=== PATIENT | female | born 1945 | race Caucasian/White ===

== ENCOUNTER 2020-07-01 09:42 | Observation (INO) | payer MEDICARE, OTHER ==
[2020-07-01 10:19] LABS: Absolute Neutrophil Ct (ANC) 15.56 (1.4-6.9); BASOPHIL % 0.3 % (0.0-0.4); Basophil (Absolute #) 0.05 (0-0.4); Eosinophil % 0.6 % (0.00-5.0); Eosinophil (Absolute #) 0.11 (0-0.5); Hematocrit 41.6 % (35-47); Hemoglobin 13.7 gm/dl (12.0-16.0); Lymphocyte (Absolute #) 1.54 (1.0-4.6); Lymphocytes % 8.3 % (24.0-44.0); Mean Cell Volume 101.5 fl (78-100); Mean Corpuscular Hemoglobin 33.4 pg (26-32); Mean Corpuscular Hgb Concent. 32.9 g/dl (32-36); Mean Platelet Volume 11.3 fl (7.5-11.0); Monocyte (Absolute #) 1.33 (0.0-1.3); Monocytes % 7.2 % (0.0-12.0); Neutrophil % 83.6 % (36.0-66.0); Platelet Count 205 K/mm3 (150-450); Red Cell Distribution Width 13.4 % (11.5-14.0); White Blood Count 18.6 K/mm3 (4.0-10.5)
[2020-07-01 10:25] LABS: INR 1.43 (0.8-3.0); PROTIME 16.2 SECONDS (9.95-12.35)
[2020-07-01 10:28] LABS: PTT 30.5 SECONDS (25.3-37.0)
[2020-07-01 10:30] LABS: ALBUMIN 4.7 g/dL (3.5-5.0); ALKALINE PHOSPHATASE 129 U/L (38-126); BLOOD UREA NITROGEN 17 mg/dL (7-17); CHLORIDE 105 mmol/L (98-107); Calcium 9.4 mg/dL (8.4-10.2); Carbon Dioxide 23 mmol/L (22-30); EST GLOMERULAR FILTRATION RATE > 60.0 ML/MIN; Glucose 144 mg/dL (74-106); Potassium 3.7 mmol/L (3.5-5.1); SGOT/AST 29 U/L (14-36); SGPT/ALT 26 U/L (0-35); SODIUM 137 mmol/L (137-145); Total Protein 8.2 g/dL (6.3-8.2)
--- NOTE | 2020-07-01 10:34 | ERPHSYRPT ---
- History of Present Illness Time Seen by Provider: 07/01/20 10:04 Source: patient Patient Subjective Stated Complaint: pt here for sorethroat, sob,cough, weakness ,nauseafor 2 days now. no fever Triage Nursing Assessment: pt arrived per wc, resp easy, skin w/d/p. danie in place, abd soft, no edema noted Physician History: 75 yo wf w dyspnea/St x 6hrs. Pt denies cough/CP/V/D/melena/hematochezia/fever/dysuria/hematuria. She has had mild nausea. Timing/Duration: other (6hr) Activities at Onset: sleep Severity of Dyspnea-Max: mild Severity of Dyspnea-Current: mild Possible Cause: no prior episodes Modifying Factors: Improves With: activity Associated Symptoms: No anxiety, No cough, No chest pain/discomfort, No edema, No fever, No insomnia, No loss of appetite, No lightheadedness, No wheezing, No weakness, No ankle swelling, No chills, No hemoptysis, No calf pain, No dizziness, No heaviness, No heart racing, No lightheadedness, No leg swelling, No muscle spasms feet, No muscle spasms hands, No painful breathing, No productive cough, No sweating, No tightness, No tingling face, No tingling hands Allergies/Adverse Reactions: No Known Drug Allergies Allergy (Unverified 07/01/20 15:01) Home Medications: Apixaban [Eliquis] 5 mg PO BID 07/01/20 [History] Aspirin 81 mg PO DAILY 07/01/20 [History] Brimonidine/Dorzolamide/Pf [Brimonidine 0.15%-Dorzolam 2%] 2 drops DAILY 07/01/20 [History] Calcium Carbonate [Calcium] 500 mg PO DAILY 07/01/20 [History] Diltiazem HCl [Diltiazem 24Hr ER] 360 mg PO HS 07/01/20 [History] Docusate Sodium [Colace] 100 mg PO DAILY 07/01/20 [History] Dorzolamide HCl/Pf [Dorzolamide 2% Eye Drop] 1 drop OP TID 07/01/20 [History] Latanoprost 2 drops OP HS 07/01/20 [History] Metoprolol Succinate 25 mg Xl* [Toprol-Xl 25MG Tablets] 25 mg PO HS 07/01/20 [History] Multivitamin [Multiple Vitamins] 1 each PO DAILY 07/01/20 [History] Tramadol HCl 50 mg [Ultram 50 mg] 50 mg PO TID 07/01/20 [History] Hx Tetanus, Diphtheria Vaccination/Date Given: No Hx Influenza Vaccination/Date Given: No Hx Pneumococcal Vaccination/Date Given: Yes Immunizations Up to Date: No Travel Risk - International Travel Have you traveled outside of the country in past 3 weeks: No - Coronavirus Screening Are you exhibiting any of the following symptoms?: Yes Symptoms: Cough: New Onset, Shortness of Breath, Vomiting/Diarrhea, Headaches/Body Aches/Fatigue - Review of Systems Constitutional: No Symptoms Eyes: No Symptoms Ears, Nose, & Throat: Throat Pain Respiratory: No Symptoms, Dyspnea Cardiac: No Symptoms Abdominal/Gastrointestinal: No Symptoms Genitourinary Symptoms: No Symptoms Musculoskeletal: No Symptoms Skin: No Symptoms Neurological: No Symptoms Psychological: No Symptoms Endocrine: No Symptoms Hematologic/Lymphatic: No Symptoms Immunological/Allergic: No Symptoms - Past Medical History Pertinent Past Medical History: Yes Cardiac History: Arrhythmia - Past Surgical History Past Surgical History: No - Social History Smoking Status: Former smoker Exposure to second hand smoke: No Drug Use: none Patient Lives Alone: No Significant Family History: no pertinent family hx - Female History Hx Last Menstrual Period: post - Nursing Vital Signs Nursing Vital Signs: Initial Vital Signs Respiratory Rate 22 07/01/20 10:04 O2 Sat by Pulse Oximetry 97 07/01/20 10:04 Pain Scale Pain Intensity 0 - Physical Exam General Appearance: no apparent distress Eye Exam: PERRL/EOMI, eyes nml inspection, scleral icterus Ears, Nose, Throat Exam: hearing grossly normal, pharyngeal erythema Neck Exam: normal inspection, non-tender, supple, full range of motion, No Brudzinski, No Kernig's, No meningismus, No carotid bruit, No JVD Respiratory Exam: normal breath sounds Cardiovascular/Chest Exam: irregular (IR-IR) Abdominal/Gastrointestinal Exam: soft, normal bowel sounds, No tenderness Extremity Exam: non-tender, normal range of motion, normal capillary refill Peripheral Pulses Exam: carotid (R): 2+, carotid (L): 2+ Neurologic Exam: alert, oriented x 3, cooperative, telephone triage nurse II-XII nml as tested, normal mood/affect, sensation nml, No motor deficits, No sensory deficit Skin Exam: normal color, warm, dry Lymphatic Exam: No adenopathy SpO2 Interpretation: normal O2 Delivery: Room Air - Course Nursing assessment & vital signs reviewed: Yes EKG Interpreted by Me: RATE (Afib/Poor R wave progression/Non-specific T wave abnormality/prolonged QTc) - Radiology Exams Chest X-ray Interpretation: Discussed w/ radiologist (Nothing acute) Ordered Tests: Active Orders 24 hr Category Date Time Status EKG-ER Only STAT Care 07/01/20 10:04 Completed Heart-Healthy Diet Diet 07/01/20 Dinner Active CHEST 1 VIEW (PORTABLE) Stat Exams 07/01/20 10:05 Completed CHEST WITHOUT CONTRAST [CT] Stat Exams 07/01/20 11:30 Completed BLOOD CULTURE Stat Lab 07/01/20 10:05 Received CBC W DIFF AM.LAB Lab 07/02/20 04:00 Ordered CBC W DIFF Stat Lab 07/01/20 10:10 Completed CMP AM.LAB Lab 07/02/20 04:00 Ordered CMP Stat Lab 07/01/20 10:10 Completed Lactic Acid Stat Lab 07/01/20 10:25 Completed PROTIME WITH INR Stat Lab 07/01/20 10:10 Completed PTT Stat Lab 07/01/20 10:10 Completed TROPONIN Q3H Lab 07/01/20 10:10 Completed TROPONIN Q3H Lab 07/01/20 13:25 Completed TROPONIN Q3H Lab 07/01/20 16:42 Completed UA W/RFX UR CULTURE Stat Lab 07/01/20 11:38 Completed Transfer Order Routine Transfer 07/01/20 Completed Medication Summary Generic Name Dose Route Start Last Admin Trade Name Freq PRN Reason Stop Dose Admin Acetaminophen 650 mg 07/01/20 16:30 07/01/20 17:15 Tylenol 325 Mg PO 07/31/20 16:29 650 mg Q4H PRN PRN Administration PAIN AND/OR FEVER Apixaban 5 mg 07/01/20 22:00 07/01/20 22:46 Eliquis 2.5 Mg Tablet PO 07/31/20 21:59 5 mg BID LEILA Administration Aspirin 81 mg 07/02/20 10:00 Ecotrin 81 Mg PO 08/01/20 09:59 DAILY LEILA Calcium Carbonate 1 tab 07/02/20 10:00 Calcium 500mg W/Vit D Tablet PO 08/01/20 09:59 DAILY LEILA Diltiazem HCl 360 mg 07/01/20 22:00 07/01/20 22:45 Cardizem Cd 180 Mg PO 07/31/20 21:59 360 mg HS LEILA Administration Docusate Sodium 100 mg 07/02/20 10:00 Colace 100 Mg PO 08/01/20 09:59 DAILY LEILA Sodium Chloride 1,000 mls @ 80 mls/hr 07/01/20 14:00 07/01/20 15:51 Sodium Chloride 0.9% 1000 Ml IV 07/31/20 13:59 80 mls/hr .[id number] LEILA Administration Azithromycin 500 mg in 250 mls @ 250 mls/hr 07/01/20 15:00 07/01/20 15:52 Zithromax 500 Mg/ 250 Ml Nacl Premix IV 07/31/20 14:59 250 mls/hr Q24H10 LEILA Administration Ceftriaxone Sodium/Dextrose 1 g in 50 mls @ 100 mls/hr 07/02/20 10:00 Rocephin 1 Gm-D5w 50 Ml Bag IV 08/01/20 09:59 Q24H10 LEILA Metoprolol Succinate 25 mg 07/01/20 22:00 07/01/20 22:46 Toprol-Xl 25mg Tablets PO 07/31/20 21:59 25 mg HS LEILA Administration Miscellaneous Information 1 each 07/01/20 17:00 Medication Intervention 07/31/20 16:59 .RN TO CHECK ON LEILA Multivitamins Therapeutic 1 tab 07/02/20 10:00 Theragran Multivitamin PO 08/01/20 09:59 DAILY LEILA Ondansetron HCl 4 mg 07/01/20 13:59 07/01/20 15:52 Zofran 4 Mg/2 Ml Vial IV 07/31/20 13:58 4 mg Q6H PRN PRN Administration NAUSEA/VOMITING Pantoprazole Sodium 40 mg 07/01/20 15:00 07/01/20 15:52 Protonix 40 Mg Iv IV 07/31/20 14:59 40 mg Q24H10 LEILA Administration Phenol 1 ml 07/01/20 16:29 07/01/20 16:38 Chloraseptic [place] 180 Ml PO 07/31/20 16:28 1 ml Q2HPRN PRN Administration SORE THROAT Tramadol HCl 50 mg 07/01/20 22:00 07/01/20 22:45 Ultram 50 Mg PO 07/31/20 21:59 50 mg TID LEILA Administration Discontinued Medications Generic Name Dose Route Start Last Admin Trade Name Freq PRN Reason Stop Dose Admin Ceftriaxone Sodium/Dextrose 1 g in 50 mls @ 100 mls/hr 07/01/20 13:56 07/01/20 14:03 Rocephin 1 Gm-D5w 50 Ml Bag IV 07/01/20 14:25 200 ml/hr STAT STA 200 mls/hr Administration Ceftriaxone Sodium/Dextrose Confirm 07/01/20 14:02 Rocephin 1 Gm-D5w 50 Ml Bag Administered 07/01/20 14:03 Dose 1 g in 50 mls @ ud IV .STK-MED ONE Latanoprost ml 07/01/20 22:00 Xalatan OP 07/31/20 21:59 HS LEILA Lidocaine HCl 20 ml 07/01/20 12:56 07/01/20 13:27 Xylocaine Viscous 2% 20 Ml Cup PO 07/01/20 12:57 20 ml STAT ONE Administration Lidocaine HCl Confirm 07/01/20 13:23 Xylocaine Hcl Viscous * Administered 07/01/20 13:24 Dose 20 ml .ROUTE .STVoddler-MED ONE Lab/Rad Data: Laboratory Result Diagrams 07/01/20 10:10 07/01/20 10:10 Laboratory Results 07/01/20 07/01/20 07/01/20 Range/Units 13:25 11:38 10:49 WBC (4.0-10.5) K/mm3 RBC (4.1-5.4) M/mm3 Hgb (12.0-16.0) gm/dl Hct (35-47) % MCV (78-100) fl MCH (26-32) pg MCHC (32-36) g/dl RDW (11.5-14.0) % Plt Count (150-450) K/mm3 MPV (7.5-11.0) fl Gran % (36.0-66.0) % Eos # (Auto) (0-0.5) Absolute Lymphs (auto) (1.0-4.6) Absolute Monos (auto) (0.0-1.3) Lymphocytes % (24.0-44.0) % Monocytes % (0.0-12.0) % Eosinophils % (0.00-5.0) % Basophils % (0.0-0.4) % Absolute Granulocytes (1.4-6.9) Basophils # (0-0.4) PT (9.95-12.35) SECONDS INR (0.8-3.0) APTT (25.3-37.0) SECONDS Sodium (137-145) mmol/L Potassium (3.5-5.1) mmol/L Chloride (98-107) mmol/L Carbon Dioxide (22-30) mmol/L Anion Gap (5-15) MEQ/L BUN (7-17) mg/dL Creatinine (0.52-1.04) mg/dL Estimated GFR ML/MIN Glucose (74-106) mg/dL Lactic Acid (0.4-2.0) Calcium (8.4-10.2) mg/dL Total Bilirubin (0.2-1.3) mg/dL AST (14-36) U/L ALT (0-35) U/L Alkaline Phosphatase (38-126) U/L Troponin I < 0.012 (0.000-0.034) ng/mL Serum Total Protein (6.3-8.2) g/dL Albumin (3.5-5.0) g/dL Urine Color STRAW (YELLOW) Urine Appearance CLEAR (CLEAR) Urine pH 7.0 (5-6) Ur Specific [place] 1.006 (1.005-1.025) Urine Protein NEGATIVE (Negative) Urine Ketones NEGATIVE (NEGATIVE) Urine Blood NEGATIVE (0-5) Bk/ul Urine Nitrite NEGATIVE (NEGATIVE) Urine Bilirubin NEGATIVE (NEGATIVE) Urine Urobilinogen NEGATIVE (0-1) mg/dL Ur Leukocyte Esterase NEGATIVE (NEGATIVE) Urine WBC (Auto) NONE (0-5) /HPF Urine RBC (Auto) 0-2 (0-2) /HPF U Epithel Cells (Auto) NONE (FEW) /HPF Urine Bacteria (Auto) NONE (NEGATIVE) /HPF Urine Mucus (Auto) SLIGHT (NEGATIVE) /HPF Urine Culture Reflexed NO (NO) Urine Glucose NEGATIVE (NEGATIVE) mg/dL SARS-CoV-2 (PCR) NEGATIVE (NEGATIVE) Group A Strep Antibody (NEGATIVE) 07/01/20 07/01/20 07/01/20 Range/Units 10:49 10:25 10:10 WBC (4.0-10.5) K/mm3 RBC (4.1-5.4) M/mm3 Hgb (12.0-16.0) gm/dl Hct (35-47) % MCV (78-100) fl MCH (26-32) pg MCHC (32-36) g/dl RDW (11.5-14.0) % Plt Count (150-450) K/mm3 MPV (7.5-11.0) fl Gran % (36.0-66.0) % Eos # (Auto) (0-0.5) Absolute Lymphs (auto) (1.0-4.6) Absolute Monos (auto) (0.0-1.3) Lymphocytes % (24.0-44.0) % Monocytes % (0.0-12.0) % Eosinophils % (0.00-5.0) % Basophils % (0.0-0.4) % Absolute Granulocytes (1.4-6.9) Basophils # (0-0.4) PT (9.95-12.35) SECONDS INR (0.8-3.0) APTT (25.3-37.0) SECONDS Sodium (137-145) mmol/L Potassium (3.5-5.1) mmol/L Chloride (98-107) mmol/L Carbon Dioxide (22-30) mmol/L Anion Gap (5-15) MEQ/L BUN (7-17) mg/dL Creatinine (0.52-1.04) mg/dL Estimated GFR ML/MIN Glucose (74-106) mg/dL Lactic Acid 1.8 (0.4-2.0) Calcium (8.4-10.2) mg/dL Total Bilirubin (0.2-1.3) mg/dL AST (14-36) U/L ALT (0-35) U/L Alkaline Phosphatase (38-126) U/L Troponin I < 0.012 (0.000-0.034) ng/mL Serum Total Protein (6.3-8.2) g/dL Albumin (3.5-5.0) g/dL Urine Color (YELLOW) Urine Appearance (CLEAR) Urine pH (5-6) Ur Specific [place] (1.005-1.025) Urine Protein (Negative) Urine Ketones (NEGATIVE) Urine Blood (0-5) Bk/ul Urine Nitrite (NEGATIVE) Urine Bilirubin (NEGATIVE) Urine Urobilinogen (0-1) mg/dL Ur Leukocyte Esterase (NEGATIVE) Urine WBC (Auto) (0-5) /HPF Urine RBC (Auto) (0-2) /HPF U Epithel Cells (Auto) (FEW) /HPF Urine Bacteria (Auto) (NEGATIVE) /HPF Urine Mucus (Auto) (NEGATIVE) /HPF Urine Culture Reflexed (NO) Urine Glucose (NEGATIVE) mg/dL SARS-CoV-2 (PCR) (NEGATIVE) Group A Strep Antibody NOT DETECTED (NEGATIVE) 07/01/20 07/01/20 07/01/20 Range/Units 10:10 10:10 10:10 WBC 18.6 H (4.0-10.5) K/mm3 RBC 4.10 (4.1-5.4) M/mm3 Hgb 13.7 (12.0-16.0) gm/dl Hct 41.6 (35-47) % MCV 101.5 H (78-100) fl MCH 33.4 H (26-32) pg MCHC 32.9 (32-36) g/dl RDW 13.4 (11.5-14.0) % Plt Count 205 (150-450) K/mm3 MPV 11.3 H (7.5-11.0) fl Gran % 83.6 H (36.0-66.0) % Eos # (Auto) 0.11 (0-0.5) Absolute Lymphs (auto) 1.54 (1.0-4.6) Absolute Monos (auto) 1.33 H (0.0-1.3) Lymphocytes % 8.3 L (24.0-44.0) % Monocytes % 7.2 (0.0-12.0) % Eosinophils % 0.6 (0.00-5.0) % Basophils % 0.3 (0.0-0.4) % Absolute Granulocytes 15.56 H (1.4-6.9) Basophils # 0.05 (0-0.4) PT 16.2 H (9.95-12.35) SECONDS INR 1.43 (0.8-3.0) APTT 30.5 (25.3-37.0) SECONDS Sodium 137 (137-145) mmol/L Potassium 3.7 (3.5-5.1) mmol/L Chloride 105 (98-107) mmol/L Carbon Dioxide 23 (22-30) mmol/L Anion Gap 12.0 (5-15) MEQ/L BUN 17 (7-17) mg/dL Creatinine 0.80 (0.52-1.04) mg/dL Estimated GFR > 60.0 ML/MIN Glucose 144 H (74-106) mg/dL Lactic Acid (0.4-2.0) Calcium 9.4 (8.4-10.2) mg/dL Total Bilirubin 1.00 (0.2-1.3) mg/dL AST 29 (14-36) U/L ALT 26 (0-35) U/L Alkaline Phosphatase 129 H (38-126) U/L Troponin I (0.000-0.034) ng/mL Serum Total Protein 8.2 (6.3-8.2) g/dL Albumin 4.7 (3.5-5.0) g/dL Urine Color (YELLOW) Urine Appearance (CLEAR) Urine pH (5-6) Ur Specific [place] (1.005-1.025) Urine Protein (Negative) Urine Ketones (NEGATIVE) Urine Blood (0-5) Bk/ul Urine Nitrite (NEGATIVE) Urine Bilirubin (NEGATIVE) Urine Urobilinogen (0-1) mg/dL Ur Leukocyte Esterase (NEGATIVE) Urine WBC (Auto) (0-5) /HPF Urine RBC (Auto) (0-2) /HPF U Epithel Cells (Auto) (FEW) /HPF Urine Bacteria (Auto) (NEGATIVE) /HPF Urine Mucus (Auto) (NEGATIVE) /HPF Urine Culture Reflexed (NO) Urine Glucose (NEGATIVE) mg/dL SARS-CoV-2 (PCR) (NEGATIVE) Group A Strep Antibody (NEGATIVE) - Progress Progress: improved Progress Note: 07/01/20 13:57 Covid19 neg/Admit per Dr. Loyd - Departure Departure Disposition: Observation Clinical Impression: Pneumonia Condition: Stable Critical Care Time: No
--- NOTE | 2020-07-01 11:28 | XRAY ---
Indication: Dyspnea. Suspect Covid 19. Comparison: None Portable chest hyperinflated and clear with incidental tiny calcified granulomas. Heart is borderline enlarged. Vascularity normal. There is a small hiatal hernia. Bony thorax intact with osteopenia, degenerative changes, and double curvature scoliosis. Impression: Nonacute chest with chronic features.
[2020-07-01 11:44] LABS: Appearance CLEAR (CLEAR); Bilirubin NEGATIVE (NEGATIVE); Blood NEGATIVE Ery/ul (0-5); Glucose NEGATIVE (NEGATIVE); Ketones NEGATIVE (NEGATIVE); Leukocyte Esterase NEGATIVE (NEGATIVE); Mucus SLIGHT /HPF (NEGATIVE); Nitrite NEGATIVE (NEGATIVE); Protein,Urine Dip NEGATIVE (Negative); RBC 0-2 /HPF (0-2); Specific Gravity 1.006 (1.005-1.025); Urobilinogen NEGATIVE mg/dL (0-1)
--- NOTE | 2020-07-01 12:24 | XRAY ---
Indication: Dyspnea, short of breath, sore throat, weakness, fatigue, nausea. Multiple contiguous axial images obtained through the chest without contrast as ordered. Comparison: None Left lower lobe demonstrates subtle patchy peripheral airspace disease (image 32). Posterior left lower lobe also demonstrates 3 mm and 4 mm peripheral noncalcified nodule possibly granulomatous as there are 2 tiny left lower lobe and single right middle lobe calcified granulomas. Right posterior gutter demonstrates 8 mm noncalcified subpleural nodule. Elsewhere there is pulmonary emphysema and minimal scattered fibrosis/scarring greatest right middle lobe. Heart is not enlarged. Aorta is mildly arteriosclerotic without aneurysmal dilatation. A few tiny bilateral perihilar calcified granulomas. No pathologic mediastinal lymphadenopathy. Bony thorax intact with mild osteopenia mild/moderate degenerative changes throughout the spine, and lumbar levorotoscoliosis. Limited upper abdomen demonstrates nonobstructing left renal micro-calculi. Impression: 1. Small subtle patchy left lower lobe airspace disease. 2. Left lower and right posterior gutter peripheral noncalcified micronodules. Findings possibly granulomatous as there is evidence for old granulomatous disease elsewhere. Outside comparison studies recommended if available. If not, recommend follow-up per Fleischner guidelines. 3. Incidental pulmonary emphysema, scattered fibrosis/scarring, chronic bony findings, and nonobstructing left renal micro-calculi.
[2020-07-01] MEDS ORDERED: XYLOCAINE VISCOUS 2% 20 ML CUP PO ONE (12:56)
[2020-07-01] MEDS ORDERED: XYLOCAINE HCl Viscous ONE (13:23)
[2020-07-01] MEDS ORDERED: ROCEPHIN 1 Gm-D5w 50 ml Bag** 1 G/50 ML IVPB IV STA (13:56)
[2020-07-01] MEDS ORDERED: Zofran 4 MG/2 ML VIAL IV PRN (13:59)
[2020-07-01] MEDS ORDERED: ROCEPHIN 1 Gm-D5w 50 ml Bag** 1 G/50 ML IVPB IV ONE (14:02)
[2020-07-01] MEDS: Sodium Chloride 0.9% 1000 ML 1,000 ML IV SCH (15:51)
[2020-07-01] MEDS: PROTONIX 40 MG IV IV SCH (15:52)
[2020-07-01] MEDS: Zithromax 500 MG/ 250 ML NaCl Premix 500 MG/250 ML IVPB IV SCH (15:52)
[2020-07-01] MEDS ORDERED: CHLORASEPTIC SPRAY 180 ML PO PRN (16:29)
[2020-07-01] MEDS ORDERED: MEDICATION INTERVENTION MC SCH (17:00)
[2020-07-01] MEDS: TYLENOL 325 MG PO PRN (17:15)
[2020-07-01] MEDS ORDERED: DILTIAZEM HCL 360 MG PO SCH (22:00)
[2020-07-01] MEDS ORDERED: NON-FORMULARY ITEM (Dorzolamide Hcl/Pf [Dorzolamide 2% Eye Drop] 1 DROP) OP SCH (22:00)
[2020-07-01] MEDS ORDERED: Xalatan OP SCH (22:00)
[2020-07-01] MEDS ORDERED: NON-FORMULARY ITEM (Apixaban [Eliquis] 5 MG) PO SCH (22:00)
[2020-07-01] MEDS: Cardizem CD 180 MG PO SCH (22:45)
[2020-07-01] MEDS: ULTRAM 50 MG PO SCH (22:45)
[2020-07-01] MEDS: Toprol-Xl 25MG Tablets PO SCH (22:46)
[2020-07-01] MEDS: ELIQUIS 2.5 MG TABLET PO SCH (22:46)
[2020-07-02] MEDS: Sodium Chloride 0.9% 1000 ML 1,000 ML IV SCH ×2 (05:38→19:38)
[2020-07-02 06:01] LABS: Absolute Neutrophil Ct (ANC) 14.76 (1.4-6.9); BASOPHIL % 0.2 % (0.0-0.4); Basophil (Absolute #) 0.03 (0-0.4); Eosinophil % 0.2 % (0.00-5.0); Eosinophil (Absolute #) 0.04 (0-0.5); Hematocrit 37.8 % (35-47); Hemoglobin 12.2 gm/dl (12.0-16.0); Lymphocyte (Absolute #) 1.87 (1.0-4.6); Lymphocytes % 10.1 % (24.0-44.0); Mean Cell Volume 103.3 fl (78-100); Mean Corpuscular Hemoglobin 33.3 pg (26-32); Mean Corpuscular Hgb Concent. 32.3 g/dl (32-36); Mean Platelet Volume 11.7 fl (7.5-11.0); Monocyte (Absolute #) 1.78 (0.0-1.3); Monocytes % 9.6 % (0.0-12.0); Neutrophil % 79.9 % (36.0-66.0); Platelet Count 170 K/mm3 (150-450); Red Blood Count 3.66 M/mm3 (4.1-5.4); White Blood Count 18.5 K/mm3 (4.0-10.5)
[2020-07-02 06:18] LABS: ALBUMIN 3.5 g/dL (3.5-5.0); ALKALINE PHOSPHATASE 87 U/L (38-126); ANION GAP 8.7 MEQ/L (5-15); BLOOD UREA NITROGEN 15 mg/dL (7-17); CHLORIDE 109 mmol/L (98-107); Calcium 8.9 mg/dL (8.4-10.2); Carbon Dioxide 22 mmol/L (22-30); Creatinine 1 0.78 mg/dL (0.52-1.04); EST GLOMERULAR FILTRATION RATE > 60.0 ML/MIN; Glucose 129 mg/dL (74-106); Potassium 3.9 mmol/L (3.5-5.1); SGOT/AST 23 U/L (14-36); SGPT/ALT 20 U/L (0-35); SODIUM 137 mmol/L (137-145); Total Protein 6.5 g/dL (6.3-8.2)
[2020-07-02 06:38] LABS: Slide Review 1 YES
[2020-07-02] MEDS ORDERED: NON-FORMULARY ITEM (Calcium Carbonate [Calcium] 500 MG) PO SCH (10:00)
[2020-07-02] MEDS ORDERED: BRIMONIDINE OP SCH (10:00)
[2020-07-02] MEDS ORDERED: NON-FORMULARY ITEM (Aspirin [Aspirin] 81 MG) PO SCH (10:00)
[2020-07-02] MEDS ORDERED: DORZOLAMIDE OP SCH (10:00)
[2020-07-02] MEDS ORDERED: NON-FORMULARY ITEM (Multivitamin [Multiple Vitamins] 1 EACH) PO SCH (10:00)
[2020-07-02] MEDS: PROTONIX 40 MG IV IV SCH (10:16)
[2020-07-02] MEDS: ROCEPHIN 1 Gm-D5w 50 ml Bag** 1 G/50 ML IVPB IV SCH (10:16)
[2020-07-02] MEDS: ELIQUIS 2.5 MG TABLET PO SCH ×2 (10:16→22:38)
[2020-07-02] MEDS: THERAGRAN MULTIVITAMIN PO SCH (10:16)
[2020-07-02] MEDS: ULTRAM 50 MG PO SCH ×3 (10:16→22:38)
[2020-07-02] MEDS: TYLENOL 325 MG PO PRN (10:16)
[2020-07-02] MEDS: Colace 100 MG PO SCH (10:17)
[2020-07-02] MEDS: ECOTRIN 81 MG PO SCH (10:17)
[2020-07-02] MEDS: Calcium 500MG W/Vit D Tablet PO SCH (10:17)
[2020-07-02] MEDS ORDERED: DUONEB 0.5-3 MG/3 ml Neb IH PRN (10:53)
[2020-07-02] MEDS ORDERED: XYLOCAINE HCl Viscous MM PRN (10:58)
[2020-07-02] MEDS ORDERED: XYLOCAINE VISCOUS 2% 20 ML CUP PO PRN (11:39)
--- NOTE | 2020-07-02 11:53 | PCM.HP ---
History of Present Illness - Chief Complaint Chief Complaint: LEFT LOWER LOBE PNEUMONIA History of Present Illness: is a 75 year old female dyspnea/St x 6hrs. Pt denies cough/CP/V/D/melena/hematochezia/fever/dysuria/hematuria. She has had mild nausea. Timing/Duration: other (6hr) Activities at Onset: sleep Severity of Dyspnea-Max: mild Severity of Dyspnea-Current: mild Possible Cause: no prior episodes Modifying Factors: Improves With: activity Associated Symptoms: No anxiety, No cough, No chest pain/discomfort, No edema, No fever, No insomnia, No loss of appetite, No lightheadedness, No wheezing, No weakness, No ankle swelling, No chills, No hemoptysis, No calf pain, No dizziness, No heaviness, No heart racing, No lightheadedness, No leg swelling, No muscle spasms feet, No muscle spasms hands, No painful breathing, No productive cough, No sweating, No tightness, No tingling face, No tingling hands - Review of Systems Constitutional: No Fever, No Chills Eyes: No Symptoms Ears, Nose, & Throat: No Symptoms Respiratory: Cough, Orthopnea, Short Of Breath, Wheezing Cardiac: No Chest Pain, No Edema, No Syncope Abdominal/Gastrointestinal: No Abdominal Pain, No Nausea, No Vomiting, No Diarrhea Genitourinary Symptoms: No Dysuria Musculoskeletal: No Back Pain, No Neck Pain Skin: No Rash Neurological: No Dizziness, No Focal Weakness, No Sensory Changes Psychological: No Symptoms Endocrine: No Symptoms Hematologic/Lymphatic: No Symptoms Immunological/Allergic: No Symptoms Medications & Allergies Home Medications: Home Medication List Apixaban [Eliquis] 5 mg PO BID 07/01/20 [History Confirmed 07/01/20] Aspirin 81 mg PO DAILY 07/01/20 [History Confirmed 07/01/20] Brimonidine/Dorzolamide/Pf [Brimonidine 0.15%-Dorzolam 2%] 2 drops DAILY 07/01/20 [History Confirmed 07/01/20] Calcium Carbonate [Calcium] 500 mg PO DAILY 07/01/20 [History Confirmed 07/01/20] Diltiazem HCl [Diltiazem 24Hr ER] 360 mg PO HS 07/01/20 [History Confirmed 07/01/20] Docusate Sodium [Colace] 100 mg PO DAILY 07/01/20 [History Confirmed 07/01/20] Dorzolamide HCl/Pf [Dorzolamide 2% Eye Drop] 1 drop OP TID 07/01/20 [History Confirmed 07/01/20] Latanoprost 2 drops OP HS 07/01/20 [History Confirmed 07/01/20] Metoprolol Succinate 25 mg Xl* [Toprol-Xl 25MG Tablets] 25 mg PO HS 07/01/20 [History Confirmed 07/01/20] Multivitamin [Multiple Vitamins] 1 each PO DAILY 07/01/20 [History Confirmed 07/01/20] Tramadol HCl 50 mg [Ultram 50 mg] 50 mg PO TID 07/01/20 [History Confirmed 07/01/20] Allergies/Adverse Reactions: Allergies Allergy/AdvReac Type Severity Reaction Status Date / Time No Known Drug Allergies Allergy Unverified 07/01/20 15:01 - Past Medical History Past Medical History: Yes Neurological History: No Pertinent History ENT History: Glaucoma Cardiac History: Arrhythmia Respiratory History: No Pertinent History Endocrine Medical History: No Pertinent History Musculoskelatal History: Arthritis GI Medical History: No Pertinent History History: No Pertinent History Pyscho-Social History: No Pertinent History Reproductive Disorders: No Pertinent History Comment: A FIB - Female History Hx Last Menstrual Period: post - Past Surgical History Past Surgical History: No Neuro Surgical History: No Pertinent History Cardiac History: No Pertinent History Respiratory Surgery: No Pertinent History GI Surgical History: No Pertinent History Genitourinary Surgical Hx: No Pertinent History Musculskeletal Surgical Hx: No Pertinent History Female Surgical History: Tubal Ligation - Social History Smoking Status: Former smoker Exposure to second hand smoke: No Alcohol: None Drug Use: none Significant Family History: no pertinent family hx - Physical Exam Vital Signs: Vital Signs - 24 hr Temp Pulse Resp BP Pulse Ox 07/02/20 07:44 99.1 F 123 H 18 118/80 96 07/02/20 04:00 98.2 F 100 H 19 119/74 96 07/02/20 00:00 98.2 F 114 H 18 125/71 96 07/01/20 19:54 98.7 F 111 H 18 116/82 97 07/01/20 14:52 99.1 F 117 H 147/92 96 07/01/20 14:44 99.1 F 117 H 22 147/92 96 07/01/20 14:43 99.1 F 117 H 147/92 96 07/01/20 14:03 108 H 18 151/109 95 07/01/20 13:00 112 H 20 139/85 95 07/01/20 12:21 102 H 150/93 99 General Appearance: no apparent distress, alert Neurologic Exam: alert, oriented x 3, cooperative, normal mood/affect, nml cerebellar function, nml station & gait, sensation nml, No motor deficits Eye Exam: PERRL/EOMI, eyes nml inspection Ears, Nose, Throat Exam: normal ENT inspection, TMs normal, pharynx normal, moist mucous membranes Neck Exam: normal inspection, non-tender, supple, full range of motion Respiratory Exam: normal breath sounds, respiratory distress, diminished breath sounds, crackles/rales, rhonchi, wheezing Cardiovascular Exam: regular rate/rhythm, normal heart sounds, normal peripheral pulses Gastrointestinal/Abdomen Exam: soft, normal bowel sounds, No tenderness, No mass Back Exam: normal inspection, normal range of motion, No CVA tenderness, No vertebral tenderness Extremity Exam: normal inspection, normal range of motion, pelvis stable Skin Exam: normal color, warm, dry, No rash Lymphatic Exam: No adenopathy Results - Labs Lab/Micro Results: Lab Results-Last 24 Hours 07/01/20 07/01/20 07/01/20 Range/Units 10:49 10:49 13:25 WBC (4.0-10.5) K/mm3 RBC (4.1-5.4) M/mm3 Hgb (12.0-16.0) gm/dl Hct (35-47) % MCV (78-100) fl MCH (26-32) pg MCHC (32-36) g/dl RDW (11.5-14.0) % Plt Count (150-450) K/mm3 MPV (7.5-11.0) fl Gran % (36.0-66.0) % Eos # (Auto) (0-0.5) Absolute Lymphs (auto) (1.0-4.6) Absolute Monos (auto) (0.0-1.3) Lymphocytes % (24.0-44.0) % Monocytes % (0.0-12.0) % Eosinophils % (0.00-5.0) % Basophils % (0.0-0.4) % Absolute Granulocytes (1.4-6.9) Basophils # (0-0.4) Sodium (137-145) mmol/L Potassium (3.5-5.1) mmol/L Chloride (98-107) mmol/L Carbon Dioxide (22-30) mmol/L Anion Gap (5-15) MEQ/L BUN (7-17) mg/dL Creatinine (0.52-1.04) mg/dL Estimated GFR ML/MIN Glucose (74-106) mg/dL Calcium (8.4-10.2) mg/dL Total Bilirubin (0.2-1.3) mg/dL AST (14-36) U/L ALT (0-35) U/L Alkaline Phosphatase (38-126) U/L Troponin I < 0.012 (0.000-0.034) ng/mL Serum Total Protein (6.3-8.2) g/dL Albumin (3.5-5.0) g/dL SARS-CoV-2 (PCR) NEGATIVE (NEGATIVE) Group A Strep Antibody NOT DETECTED (NEGATIVE) Slides for Path Review 07/01/20 07/02/20 07/02/20 Range/Units 16:42 05:11 05:11 WBC 18.5 H (4.0-10.5) K/mm3 RBC 3.66 L (4.1-5.4) M/mm3 Hgb 12.2 (12.0-16.0) gm/dl Hct 37.8 (35-47) % MCV 103.3 H (78-100) fl MCH 33.3 H (26-32) pg MCHC 32.3 (32-36) g/dl RDW 14.0 (11.5-14.0) % Plt Count 170 (150-450) K/mm3 MPV 11.7 H (7.5-11.0) fl Gran % 79.9 H (36.0-66.0) % Eos # (Auto) 0.04 (0-0.5) Absolute Lymphs (auto) 1.87 (1.0-4.6) Absolute Monos (auto) 1.78 H (0.0-1.3) Lymphocytes % 10.1 L (24.0-44.0) % Monocytes % 9.6 (0.0-12.0) % Eosinophils % 0.2 (0.00-5.0) % Basophils % 0.2 (0.0-0.4) % Absolute Granulocytes 14.76 H (1.4-6.9) Basophils # 0.03 (0-0.4) Sodium 137 (137-145) mmol/L Potassium 3.9 (3.5-5.1) mmol/L Chloride 109 H (98-107) mmol/L Carbon Dioxide 22 (22-30) mmol/L Anion Gap 8.7 (5-15) MEQ/L BUN 15 (7-17) mg/dL Creatinine 0.78 (0.52-1.04) mg/dL Estimated GFR > 60.0 ML/MIN Glucose 129 H (74-106) mg/dL Calcium 8.9 (8.4-10.2) mg/dL Total Bilirubin 0.80 (0.2-1.3) mg/dL AST 23 (14-36) U/L ALT 20 (0-35) U/L Alkaline Phosphatase 87 (38-126) U/L Troponin I < 0.012 (0.000-0.034) ng/mL Serum Total Protein 6.5 (6.3-8.2) g/dL Albumin 3.5 (3.5-5.0) g/dL SARS-CoV-2 (PCR) (NEGATIVE) Group A Strep Antibody (NEGATIVE) Slides for Path Review YES - Radiology Impressions Radiology Exams & Impressions: Radiology Procedures Category Date Time Status CHEST 1 VIEW (PORTABLE) Stat Exams 07/01/20 10:05 Completed CHEST WITHOUT CONTRAST [CT] Stat Exams 07/01/20 11:[address]/CHEST WITHOUT CONTRAST Indication: Dyspnea, short of breath, sore throat, weakness, fatigue, nausea. Multiple contiguous axial images obtained through the chest without contrast as ordered. Comparison: None Left lower lobe demonstrates subtle patchy peripheral airspace disease (image 32). Posterior left lower lobe also demonstrates 3 mm and 4 mm peripheral noncalcified nodule possibly granulomatous as there are 2 tiny left lower lobe and single right middle lobe calcified granulomas. Right posterior gutter demonstrates 8 mm noncalcified subpleural nodule. Elsewhere there is pulmonary emphysema and minimal scattered fibrosis/scarring greatest right middle lobe. Heart is not enlarged. Aorta is mildly arteriosclerotic without aneurysmal dilatation. A few tiny bilateral perihilar calcified granulomas. No pathologic mediastinal lymphadenopathy. Bony thorax intact with mild osteopenia mild/moderate degenerative changes throughout the spine, and lumbar levorotoscoliosis. Limited upper abdomen demonstrates nonobstructing left renal micro-calculi. Impression: 1. Small subtle patchy left lower lobe airspace disease. 2. Left lower and right posterior gutter peripheral noncalcified micronodules. Findings possibly granulomatous as there is evidence for old granulomatous disease elsewhere. Outside comparison studies recommended if available. If not, recommend follow-up per Fleischner guidelines. 3. Incidental pulmonary emphysema, scattered fibrosis/scarring, chronic bony findings, and nonobstructing left renal micro-calculi. Assessment/Plan (1) Pneumonia Current Visit: Yes Status: Acute Qualifiers: Pneumonia type: due to unspecified organism Laterality: left Lung location: lower lobe of lung Qualified Code(s): J18.9 - Pneumonia, unspecified organism Assessment & Plan: Chief Complaint Diagnosis LEFT LOWER LOBE PNEUMONIA Allergies Allergy/AdvReac Type Severity Reaction Status Date / Time No Known Drug Allergies Allergy Unverified 07/01/20 15:01 Vital Signs (Last 24 hours) Temp Pulse Resp BP Pulse Ox 07/02/20 07:44 99.1 F 123 H 18 118/80 96 07/02/20 04:00 98.2 F 100 H 19 119/74 96 07/02/20 00:00 98.2 F 114 H 18 125/71 96 07/01/20 19:54 98.7 F 111 H 18 116/82 97 07/01/20 14:52 99.1 F 117 H 147/92 96 07/01/20 14:44 99.1 F 117 H 22 147/92 96 07/01/20 14:43 99.1 F 117 H 147/92 96 07/01/20 14:03 108 H 18 151/109 95 07/01/20 13:00 112 H 20 139/85 95 07/01/20 12:21 102 H 150/93 99 Home Medications Medication Instructions Recorded Confirmed Last Taken Type Apixaban [Eliquis] 5 mg PO BID 07/01/20 07/01/20 07/01/20 History Aspirin 81 mg PO DAILY 07/01/20 07/01/20 07/01/20 History Brimonidine/Dorzolamide/Pf 2 drops DAILY 07/01/20 07/01/20 07/01/20 History [Brimonidine 0.15%-Dorzolam 2%] Calcium Carbonate [Calcium] 500 mg PO DAILY 07/01/20 07/01/20 Unknown History Diltiazem HCl [Diltiazem 24Hr ER] 360 mg PO HS 07/01/20 07/01/20 07/01/20 History Docusate Sodium [Colace] 100 mg PO DAILY 07/01/20 07/01/20 07/01/20 History Dorzolamide HCl/Pf [Dorzolamide 2% 1 drop OP TID 07/01/20 07/01/20 07/01/20 History Eye Drop] Latanoprost 2 drops OP HS 07/01/20 07/01/20 06/30/20 History Metoprolol Succinate 25 mg Xl* 25 mg PO HS 07/01/20 07/01/20 06/30/20 History [Toprol-Xl 25MG Tablets] Multivitamin [Multiple Vitamins] 1 each PO DAILY 07/01/20 07/01/20 07/01/20 History Tramadol HCl 50 mg [Ultram 50 50 mg PO TID 07/01/20 07/01/20 07/01/20 History mg] Current Medications Generic Name Dose Route Start Last Admin Trade Name Freq PRN Reason Stop Dose Admin Acetaminophen 650 mg 07/01/20 16:30 07/02/20 10:16 Tylenol 325 Mg PO 07/31/20 16:29 650 mg Q4H PRN PRN Administration PAIN AND/OR FEVER Albuterol/Ipratropium 3 ml 07/02/20 10:53 Duoneb 0.5-3 Mg/3 Ml Neb IH 08/01/20 10:52 Q4HPRN PRN SHORTNESS OF BREATH/WHEEZING Apixaban 5 mg 07/01/20 22:00 07/02/20 10:16 Eliquis 2.5 Mg Tablet PO 07/31/20 21:59 5 mg BID LEILA Administration Aspirin 81 mg 07/02/20 10:00 07/02/20 10:17 Ecotrin 81 Mg PO 08/01/20 09:59 Not Given DAILY LEILA Calcium Carbonate 1 tab 07/02/20 10:00 07/02/20 10:17 Calcium 500mg W/Vit D Tablet PO 08/01/20 09:59 Not Given DAILY LEILA Diltiazem HCl 360 mg 07/01/20 22:00 07/01/20 22:45 Cardizem Cd 180 Mg PO 07/31/20 21:59 360 mg HS LEILA Administration Docusate Sodium 100 mg 07/02/20 10:00 07/02/20 10:17 Colace 100 Mg PO 08/01/20 09:59 Not Given DAILY LEILA Sodium Chloride 1,000 mls @ 80 mls/hr 07/01/20 14:00 07/02/20 05:38 Sodium Chloride 0.9% 1000 Ml IV 07/31/20 13:59 80 mls/hr .[id number] LEILA Administration Azithromycin 500 mg in 250 mls @ 250 mls/hr 07/01/20 15:00 07/01/20 15:52 Zithromax 500 Mg/ 250 Ml Nacl Premix IV 07/31/20 14:59 250 mls/hr Q24H10 LEILA Administration Ceftriaxone Sodium/Dextrose 1 g in 50 mls @ 100 mls/hr 07/02/20 10:00 07/02/20 10:16 Rocephin 1 Gm-D5w 50 Ml Bag IV 08/01/20 09:59 100 mls/hr Q24H10 LEILA Administration Lidocaine HCl 20 ml 07/02/20 11:39 Xylocaine Viscous 2% 20 Ml Cup PO 08/01/20 11:38 Q3H/PRN PRN sore throat Methylprednisolone Sodium Succinate 40 mg 07/02/20 11:00 Solu-Medrol 40 Mg IV 08/01/20 10:59 Q8H LEILA Metoprolol Succinate 25 mg 07/01/20 22:00 07/01/20 22:46 Toprol-Xl 25mg Tablets PO 07/31/20 21:59 25 mg HS LEILA Administration Miscellaneous Information 1 each 07/01/20 17:00 Medication Intervention 07/31/20 16:59 .RN TO CHECK ON LEIAL Multivitamins Therapeutic 1 tab 07/02/20 10:00 07/02/20 10:16 Theragran Multivitamin PO 08/01/20 09:59 1 tab DAILY LEILA Administration Ondansetron HCl 4 mg 07/01/20 13:59 07/01/20 15:52 Zofran 4 Mg/2 Ml Vial IV 07/31/20 13:58 4 mg Q6H PRN PRN Administration NAUSEA/VOMITING Pantoprazole Sodium 40 mg 07/01/20 15:00 07/02/20 10:16 Protonix 40 Mg Iv IV 07/31/20 14:59 40 mg Q24H10 LEILA Administration Phenol 1 ml 07/01/20 16:29 07/01/20 16:38 Chloraseptic [place] 180 Ml PO 07/31/20 16:28 1 ml Q2HPRN PRN Administration SORE THROAT Tramadol HCl 50 mg 07/01/20 22:00 07/02/20 10:16 Ultram 50 Mg PO 07/31/20 21:59 50 mg TID LEILA Administration Discontinued Medications Generic Name Dose Route Start Last Admin Trade Name Freq PRN Reason Stop Dose Admin Ceftriaxone Sodium/Dextrose 1 g in 50 mls @ 100 mls/hr 07/01/20 13:56 07/01/20 14:03 Rocephin 1 Gm-D5w 50 Ml Bag IV 07/01/20 14:25 200 ml/hr STAT STA 200 mls/hr Administration Ceftriaxone Sodium/Dextrose Confirm 07/01/20 14:02 Rocephin 1 Gm-D5w 50 Ml Bag Administered 07/01/20 14:03 Dose 1 g in 50 mls @ ud IV .STK-MED ONE Latanoprost ml 07/01/20 22:00 Xalatan OP 07/31/20 21:59 HS LEILA Lidocaine HCl 20 ml 07/01/20 12:56 07/01/20 13:27 Xylocaine Viscous 2% 20 Ml Cup PO 07/01/20 12:57 20 ml STAT ONE Administration Lidocaine HCl Confirm 07/01/20 13:23 Xylocaine Hcl Viscous * Administered 07/01/20 13:24 Dose 20 ml .ROUTE .STK-MED ONE Lidocaine HCl 20 ml 07/02/20 10:58 Xylocaine Hcl Viscous * MM 08/01/20 10:57 Q3H PRN sore throat Intake & Output (Last 24 hours) 10/20/20 10/21/20 10/22/20 10/23/20 11:59 11:59 11:59 11:59 Intake Total 2845 Output Total 500 Balance 2345 Weight 47.627 kg 47.2 kg Microbiology Results (Last 24 hours) 07/01/20 10:05 Blood Blood Culture Gram Stain - Pending 07/01/20 10:05 Blood Blood Culture - Pending 07/01/20 14:30 Blood Blood Culture Gram Stain - Pending 07/01/20 14:30 Blood Blood Culture - Pending Laboratory Results (Last 24 hours) 07/02/20 07/02/20 07/01/20 05:11 05:11 16:42 WBC 18.5 H RBC 3.66 L Hgb 12.2 Hct 37.8 MCV 103.3 H MCH 33.3 H MCHC 32.3 RDW 14.0 Plt Count 170 MPV 11.7 H Gran % 79.9 H Eos # (Auto) 0.04 Absolute Lymphs (auto) 1.87 Absolute Monos (auto) 1.78 H Lymphocytes % 10.1 L Monocytes % 9.6 Eosinophils % 0.2 Basophils % 0.2 Absolute Granulocytes 14.76 H Basophils # 0.03 Sodium 137 Potassium 3.9 Chloride 109 H Carbon Dioxide 22 Anion Gap 8.7 BUN 15 Creatinine 0.78 Estimated GFR > 60.0 Glucose 129 H Calcium 8.9 Total Bilirubin 0.80 AST 23 ALT 20 Alkaline Phosphatase 87 Troponin I < 0.012 Serum Total Protein 6.5 Albumin 3.5 SARS-CoV-2 (PCR) Group A Strep Antibody Slides for Path Review YES 07/01/20 07/01/20 07/01/20 13:25 10:49 10:49 WBC RBC Hgb Hct MCV MCH MCHC RDW Plt Count MPV Gran % Eos # (Auto) Absolute Lymphs (auto) Absolute Monos (auto) Lymphocytes % Monocytes % Eosinophils % Basophils % Absolute Granulocytes Basophils # Sodium Potassium Chloride Carbon Dioxide Anion Gap BUN Creatinine Estimated GFR Glucose Calcium Total Bilirubin AST ALT Alkaline Phosphatase Troponin I < 0.012 Serum Total Protein Albumin SARS-CoV-2 (PCR) NEGATIVE Group A Strep Antibody NOT DETECTED Slides for Path Review Orders (Last 24 hours) Category Date Time Status Bedrest ROUTINE Activity 07/01/20 14:00 Active Call Admit Doctor for Orders ON ADMISSION Care 07/01/20 13:59 Active Code Status Order ROUTINE Care 07/01/20 13:59 Active IV Care Q6H Care 07/01/20 13:[address] in Observation ROUTINE Care 07/01/20 13:59 Active Vital Signs Q4H Care 07/01/20 13:59 Completed Heart-Healthy Diet Diet 07/01/20 Dinner Active CHEST WITHOUT CONTRAST [CT] Stat Exams 07/01/20 11:30 Completed CBC W DIFF AM.LAB Lab 07/02/20 05:11 Completed CMP AM.LAB Lab 07/02/20 05:11 Completed TROPONIN Q3H Lab 07/01/20 13:25 Completed TROPONIN Q3H Lab 07/01/20 16:42 Completed UA W/RFX UR CULTURE Stat Lab 07/01/20 11:38 Completed Acetaminophen 325 mg [Tylenol 325 mg] Med 07/01/20 16:30 Active 650 mg PO Q4H PRN PRN Albuterol/Ipratropium 3ml Neb* [DUONEB 0.5-3 MG/3 ml Med 07/02/20 10:53 Active Neb] 3 ml IH Q4HPRN PRN Apixaban [Eliquis 2.5 mg Tablet] Med 07/01/20 22:00 Active 5 mg PO BID Aspirin EC 81 mg [Ecotrin 81 mg] Med 07/02/20 10:00 Active 81 mg PO DAILY Azithromycin 500 mg/250 ml [Zithromax 500 MG/ 250 ML Med 07/01/20 15:00 Active NaCl Premix] 500 mg in 250 ml IV Q24H10 Calcium Carb/Vitamin D 500 mg* [Calcium 500MG W/Vit D Med 07/02/20 10:00 Active Tablet] 1 tab PO DAILY Ceftriaxone 1 GM/50 ML PREMIX* [ROCEPHIN 1 Gm-D5w 50 ml Med 07/02/20 10:00 Active Bag] 1 g in 50 ml IV Q24H10 Ceftriaxone 1 GM/50 ML PREMIX* [ROCEPHIN 1 Gm-D5w 50 ml Med 07/01/20 13:56 Discontinued Bag] 1 g in 50 ml IV STAT Ceftriaxone 1 GM/50 ML PREMIX* [ROCEPHIN 1 Gm-D5w 50 ml Med 07/01/20 14:02 Discontinued Bag] 1 g in 50 ml IV UD Diltiazem HCl 180 mg [Cardizem CD 180 MG] Med 07/01/20 22:00 Active 360 mg PO HS Docusate Sodium 100 mg [Colace 100 MG] Med 07/02/20 10:00 Active 100 mg PO DAILY Latanoprost [Xalatan] Med 07/01/20 22:00 Discontinued DOSE ml OP HS Lidocaine HCl 2% Viscous [Xylocaine Viscous 2% 20 ml Med 07/02/20 11:39 Active Cup] 20 ml PO Q3H/PRN PRN Lidocaine HCl 2% Viscous [Xylocaine Viscous 2% 20 ml Med 07/01/20 12:56 Discontinued Cup] 20 ml PO STAT ONE Lidocaine HCl Viscous [XYLOCAINE HCl Viscous *] Med 07/01/20 13:23 Discontinued 20 ml .ROUTE .STK-MED ONE Lidocaine HCl Viscous [XYLOCAINE HCl Viscous *] Med 07/02/20 10:58 Discontinued 20 ml MM Q3H PRN Medication Intervention Med 07/01/20 17:00 Active 1 each MC .RN TO CHECK ON Methylprednisolone Sod Suc 40M [solu-MEDROL 40 MG] Med 07/02/20 11:00 Active 40 mg IV Q8H Metoprolol Succinate 25 mg Xl* [Toprol-Xl 25MG Tablets* Med 07/01/20 22:00 Active ] 25 mg PO HS Multivitamins,Therapeutic Tab* [Theragran Multivitamin* Med 07/02/20 10:00 Active ] 1 tab PO DAILY NaCl 0.9% 1000 ml [Sodium Chloride 0.9% 1000 ML] 1,000 Med 07/01/20 14:00 Active ml IV 80 mls/hr Ondansetron HCl 4 mg/2 ml [Zofran 4 MG/2 ML VIAL] Med 07/01/20 13:59 Active 4 mg IV Q6H PRN PRN Pantoprazole 40 mg [Protonix 40 mg IV] Med 07/01/20 15:00 Active 40 mg IV Q24H10 Phenol/Sodium Phenolate [Chloraseptic [place] 180 ml Med 07/01/20 16:29 Active *] 1 ml PO Q2HPRN PRN Tramadol HCl 50 mg [Ultram 50 mg] Med 07/01/20 22:00 Active 50 mg PO TID Code(s): J18.9 - PNEUMONIA, UNSPECIFIED ORGANISM (2) Emphysema lung Current Visit: Yes Status: Acute Code(s): J43.9 - EMPHYSEMA, UNSPECIFIED
[2020-07-02] MEDS: Zithromax 500 MG/ 250 ML NaCl Premix 500 MG/250 ML IVPB IV SCH (12:04)
[2020-07-02] MEDS: solu-MEDROL 40 MG IV SCH ×2 (12:05→19:14)
[2020-07-02] MEDS: Cardizem CD 180 MG PO SCH (22:38)
[2020-07-02] MEDS: Toprol-Xl 25MG Tablets PO SCH (22:39)
[2020-07-03] MEDS: solu-MEDROL 40 MG IV SCH ×2 (03:17→12:40)
[2020-07-03] MEDS: Sodium Chloride 0.9% 1000 ML 1,000 ML IV SCH (08:38)
[2020-07-03] MEDS: Calcium 500MG W/Vit D Tablet PO SCH (08:39)
[2020-07-03] MEDS: ECOTRIN 81 MG PO SCH (08:39)
[2020-07-03] MEDS: ROCEPHIN 1 Gm-D5w 50 ml Bag** 1 G/50 ML IVPB IV SCH (09:53)
[2020-07-03] MEDS: ULTRAM 50 MG PO SCH ×2 (09:54→14:57)
[2020-07-03] MEDS: Colace 100 MG PO SCH (09:54)
[2020-07-03] MEDS: ELIQUIS 2.5 MG TABLET PO SCH (09:54)
[2020-07-03] MEDS: THERAGRAN MULTIVITAMIN PO SCH (09:54)
[2020-07-03] MEDS: TYLENOL 325 MG PO PRN (09:54)
[2020-07-03] MEDS: PROTONIX 40 MG IV IV SCH (09:54)
[2020-07-03] MEDS: Zithromax 500 MG/ 250 ML NaCl Premix 500 MG/250 ML IVPB IV SCH (12:40)
[2020-07-03 15:26] LABS: Absolute Neutrophil Ct (ANC) 16.75 (1.4-6.9); BASOPHIL % 0.1 % (0.0-0.4); Basophil (Absolute #) 0.02 (0-0.4); Eosinophil (Absolute #) 0 (0-0.5); Hematocrit 38.3 % (35-47); Hemoglobin 12.4 gm/dl (12.0-16.0); Lymphocyte (Absolute #) 1.03 (1.0-4.6); Lymphocytes % 5.5 % (24.0-44.0); Mean Corpuscular Hemoglobin 33.3 pg (26-32); Mean Corpuscular Hgb Concent. 32.4 g/dl (32-36); Mean Platelet Volume 11.2 fl (7.5-11.0); Monocyte (Absolute #) 0.86 (0.0-1.3); Monocytes % 4.6 % (0.0-12.0); Neutrophil % 89.8 % (36.0-66.0); Platelet Count 204 K/mm3 (150-450); Red Blood Count 3.72 M/mm3 (4.1-5.4); Red Cell Distribution Width 13.7 % (11.5-14.0); White Blood Count 18.7 K/mm3 (4.0-10.5)
[2020-07-03 15:30] LABS: ALBUMIN 3.9 g/dL (3.5-5.0); ALKALINE PHOSPHATASE 110 U/L (38-126); BLOOD UREA NITROGEN 38 mg/dL (7-17); CHLORIDE 107 mmol/L (98-107); Calcium 9.3 mg/dL (8.4-10.2); Carbon Dioxide 20 mmol/L (22-30); Creatinine 1 0.82 mg/dL (0.52-1.04); EST GLOMERULAR FILTRATION RATE > 60.0 ML/MIN; Glucose 264 mg/dL (74-106); Potassium 4.5 mmol/L (3.5-5.1); SGOT/AST 47 U/L (14-36); SGPT/ALT 42 U/L (0-35); SODIUM 135 mmol/L (137-145); Total Protein 7.2 g/dL (6.3-8.2)
--- NOTE | 2020-07-03 15:47 | PCM.DS ---
Discharge Summary Date of Admission: 07/01/20 14:34 Admitting Physician: HUI FREY Primary Care Provider: HUI FREY Allergies Allergies No Known Drug Allergies Allergy (Unverified 07/01/20 15:01) Hospital Summary - Hospital Course Hospital Course: Patient presented to ER with sob,cough, sore throat and nausea. Covid negative and strep screen negative in ER. CXR then Chest CT showed LLL pneumonia and emphysema. Patient has improved clinically on IV fluids, Rocephin ,Zithromax and Solumedrol . WBC 18,000 on admission and today as well but may be due to IV Solumedrol. Pharynx still has a yellow coating on left tonsilar pillar but sore throat symptoms much improved. Patient has been up to the bathroom and bathed and walked the halls with nurse at side without sob or dizziness.Appetite is good and is oral taking fluids well. - Vitals & Intake/Output Vital Signs: Vital Signs Temperature 96.8 F 07/03/20 12:00 Pulse Rate 96 H 07/03/20 12:00 Respiratory Rate 16 07/03/20 12:00 Blood Pressure 125/67 07/03/20 12:00 O2 Sat by Pulse Oximetry 96 07/03/20 12:00 Intake & Output: Intake & Output 07/01/20 07/02/20 07/03/20 07/04/20 11:59 11:59 11:59 11:59 Intake Total 2845 3064 240 Output Total 500 150 Balance 2345 2914 240 Weight 47.627 kg 47.2 kg - Lab Result Diagrams: 07/03/20 15:10 07/02/20 05:11 Lab Results-Last 24 Hrs: Lab Results-Last 24 Hours 07/03/20 Range/Units 15:10 WBC 18.7 H (4.0-10.5) K/mm3 RBC 3.72 L (4.1-5.4) M/mm3 Hgb 12.4 (12.0-16.0) gm/dl Hct 38.3 (35-47) % MCV 103.0 H (78-100) fl MCH 33.3 H (26-32) pg MCHC 32.4 (32-36) g/dl RDW 13.7 (11.5-14.0) % Plt Count 204 (150-450) K/mm3 MPV 11.2 H (7.5-11.0) fl Gran % 89.8 H (36.0-66.0) % Eos # (Auto) 0 (0-0.5) Absolute Lymphs (auto) 1.03 (1.0-4.6) Absolute Monos (auto) 0.86 (0.0-1.3) Lymphocytes % 5.5 L (24.0-44.0) % Monocytes % 4.6 (0.0-12.0) % Eosinophils % 0.0 (0.00-5.0) % Basophils % 0.1 (0.0-0.4) % Absolute Granulocytes 16.75 H (1.4-6.9) Basophils # 0.02 (0-0.4) Micro Results-Entire Visit: Microbiology 07/01/20 10:05 Blood Culture - Preliminary Blood NO GROWTH TO DATE 07/01/20 14:30 Blood Culture - Preliminary Blood NO GROWTH TO DATE Discharge Exam General Appearance: no apparent distress Neurologic Exam: alert, oriented x 3, cooperative, normal mood/affect Eye Exam: eyes nml inspection Ears, Nose, Throat Exam: TMs normal, pharyngeal erythema, tonsillar exudate (peritonsilar area) Neck Exam: normal inspection Respiratory Exam: diminished breath sounds (bibasilar,no ronchi,no wheeze) Cardiovascular Exam: tachycardia Gastrointestinal/Abdomen Exam: soft (nontender) Back Exam: other (scoliosis) Extremity Exam: normal inspection, other (no edema) Skin Exam: normal color, warm, dry Final Diagnosis/Problem List - Final Discharge Diagnosis/Problem (1) Pneumonia Current Visit: Yes Status: Acute Assessment & Plan: L pneumonia sending home with Albuterol inhaler and Levaquin. Will follow with Dr Borrego this week. Code(s): J18.9 - PNEUMONIA, UNSPECIFIED ORGANISM (2) Emphysema lung Current Visit: Yes Status: Chronic Code(s): J43.9 - EMPHYSEMA, UNSPECIFIED (3) Pharyngitis Current Visit: Yes Status: Acute Code(s): J02.9 - ACUTE PHARYNGITIS, UNSPECIFIED (4) Chronic a-fib Current Visit: Yes Status: Chronic Assessment & Plan: Follows with [facility] at [place] [address] [place] Code(s): I48.20 - CHRONIC ATRIAL FIBRILLATION, UNSPECIFIED (5) Neutrophilic leukocytosis Current Visit: Yes Status: Acute Assessment & Plan: Dr Frey to follow,will go home on Levaquin and Prednisone. Code(s): D72.9 - DISORDER OF WHITE BLOOD CELLS, UNSPECIFIED (6) Abnormal chest CT Current Visit: Yes Status: Acute Assessment & Plan: follow up CT Chest per Dr Frey in 3-6 months. Code(s): R93.89 - ABNORMAL FINDINGS ON DX IMAGING OF OTH BODY STRUCTURES - Discharge Disposition: Home, Self-Care Condition: Stable Prescriptions: New Levofloxacin [Levaquin] 500 mg PO DAILY #7 tablet Methylprednisolone Packet [Medrol Dosepack] 4 mg PO UD 5 Days #1 packet Continue Tramadol HCl 50 mg [Ultram 50 mg] 50 mg PO TID Metoprolol Succinate 25 mg Xl* [Toprol-Xl 25MG Tablets] 25 mg PO HS Latanoprost 2 drops OP HS Dorzolamide HCl/Pf [Dorzolamide 2% Eye Drop] 1 drop OP TID Diltiazem HCl [Diltiazem 24Hr ER] 360 mg PO HS Brimonidine/Dorzolamide/Pf [Brimonidine 0.15%-Dorzolam 2%] 2 drops DAILY Calcium Carbonate [Calcium] 500 mg PO DAILY Aspirin 81 mg PO DAILY Multivitamin [Multiple Vitamins] 1 each PO DAILY Apixaban [Eliquis] 5 mg PO BID Docusate Sodium [Colace] 100 mg PO DAILY Follow up with: HUI FREY MD [Primary Care Provider] - 07/12/20 11:15 am (at [place])
[2020-07-03 16:17] VITALS: BP 139/88; PULSE 92; O2SAT 100
--- NOTE | 2020-07-03 16:52 | PCM.DCORD ---
- Discharge Disposition: Home, Self-Care Condition: Stable Prescriptions: New Levofloxacin [Levaquin] 500 mg PO DAILY #7 tablet Methylprednisolone Packet [Medrol Dosepack] 4 mg PO UD 5 Days #1 packet Continue Tramadol HCl 50 mg [Ultram 50 mg] 50 mg PO TID Metoprolol Succinate 25 mg Xl* [Toprol-Xl 25MG Tablets] 25 mg PO HS Latanoprost 2 drops OP HS Dorzolamide HCl/Pf [Dorzolamide 2% Eye Drop] 1 drop OP TID Diltiazem HCl [Diltiazem 24Hr ER] 360 mg PO HS Brimonidine/Dorzolamide/Pf [Brimonidine 0.15%-Dorzolam 2%] 2 drops DAILY Calcium Carbonate [Calcium] 500 mg PO DAILY Aspirin 81 mg PO DAILY Multivitamin [Multiple Vitamins] 1 each PO DAILY Apixaban [Eliquis] 5 mg PO BID Docusate Sodium [Colace] 100 mg PO DAILY Follow up with: HUI FREY MD [Primary Care Provider] - 07/12/20 11:15 am (at [place])
== END 2020-07-03 17:30 | disposition home or self-care (01) ==
LOC: ED 09:42 → MED SURG 14:34
PROVIDERS: ADMIT General Practice; ATTEND General Practice
DX: J18.9 Pneumonia, unspecified organism (principal); J02.9 Acute pharyngitis, unspecified; I48.20 Chronic atrial fibrillation, unspecified; D72.9 Disorder of white blood cells, unspecified; J43.9 Emphysema, unspecified; R93.89 Abnormal findings on diagnostic imaging of other specified body structures; Z79.01 Long term (current) use of anticoagulants; Z79.899 Other long term (current) drug therapy
CPT/HCPCS: 36415; 71045; 71250; 80053; 81001; 83605; 84439; 84443; 84484; 85025; 85610; 85730; 87040; 87070; 87651; 93005; 96365; 99285; G0378; U0003; 87077; 87186; J0456; J0696; J2405; J2920; A9270-GY

== ENCOUNTER 2021-11-21 23:25 | Observation (INO) | payer MEDICARE, OTHER ==
[2021-11-22] MEDS ORDERED: LOPRESSOR 5 MG/5 ML INJECTION IV ONE ×4 (00:01→01:09)
--- NOTE | 2021-11-22 00:10 | ERPHSYRPT ---
- History of Present Illness Time Seen by Provider: 11/21/21 23:30 Historian: patient, EMS Exam Limitations: no limitations Patient Subjective Stated Complaint: pt states she has had a nosebleed since approx 1700. states approx 1 hour ago she passed out for a short time and hit the back of her head on the bathtub. denies head or neck pain at this time. Triage Nursing Assessment: pt alert and oriented, answers questions approp. pt arrive per ambulance and transfers to [facility] with assist of 3. active bleeding noted from rt nare. heart rate 120-160 afib on monitor. pt denies shortness of breath, chest pain or pressure Physician History: Patient is a 76-year-old female who had a nosebleeds which started approximately 7 hours prior to arrival by ambulance in the ER. Patient is on Eliquis 5 mg a day during the evening she had one episode where she became very lightheaded and had a syncopal episode and fell hitting her head on the tub. She is on diltiazem apparently to control her rate with atrial fib however she was at a rate of about 150 at the time of my exam. Her problems are 1 atrial fib with RVR 2 epistaxis and 3 syncope with a blow to the head. Timing/Duration: today Activities at Onset: none Severity of Pain-Max: none Severity of Pain-Current: none Associated Symptoms: palpitations Nitro Today/Relief: no nitro taken today Aspirin Treatment Today: no aspirin today Allergies/Adverse Reactions: No Known Drug Allergies Allergy (Verified 11/21/21 23:48) Home Medications: Apixaban [Eliquis] 5 mg PO DAILY 07/01/20 [History] Brimonidine/Dorzolamide/Pf [Brimonidine 0.15%-Dorzolam 2%] 1 drops OP BID 07/01/20 [History] Calcium Carbonate [Calcium] 500 mg PO DAILY 07/01/20 [History] Docusate Sodium [Colace] 100 mg PO DAILY 07/01/20 [History] Dorzolamide HCl/Pf [Dorzolamide 2% Eye Drop] 1 drop OP BID 07/01/20 [History] Latanoprost 1 drops OP HS 07/01/20 [History] Multivitamin [Multiple Vitamins] 1 each PO DAILY 07/01/20 [History] Tramadol HCl 50 mg [Ultram 50 mg] 50 mg PO TID 07/01/20 [History] Diltiazem HCl [Diltiazem 24Hr ER] 240 mg PO HS 11/22/21 [History] Furosemide [Lasix] 10 mg PO DAILY 11/22/21 [History] Hx Tetanus, Diphtheria Vaccination/Date Given: No Hx Influenza Vaccination/Date Given: No Hx Pneumococcal Vaccination/Date Given: No Immunizations Up to Date: No Travel Risk - International Travel Have you traveled outside of the country in past 3 weeks: No - Coronavirus Screening Are you exhibiting any of the following symptoms?: No Close contact with a COVID-19 positive Pt in past 14-21 Days: No - Vaccine Status Have you recieved a Covid-19 vaccination: No - Review of Systems Constitutional: No Fever, No Chills Eyes: No Symptoms Ears, Nose, & Throat: No Symptoms, Epistaxis Respiratory: No Cough, No Dyspnea Cardiac: Palpitations, No Chest Pain, No Edema, No Syncope Abdominal/Gastrointestinal: No Abdominal Pain, No Nausea, No Vomiting, No Diarrhea Genitourinary Symptoms: No Dysuria Musculoskeletal: No Back Pain, No Neck Pain Skin: No Rash Neurological: No Dizziness, No Focal Weakness, No Sensory Changes Psychological: No Symptoms Endocrine: No Symptoms All Other Systems: Reviewed and Negative - Past Medical History Pertinent Past Medical History: Yes Neurological History: No Pertinent History ENT History: Glaucoma Cardiac History: Arrhythmia, Hypertension Respiratory History: Emphysema Endocrine Medical History: No Pertinent History Musculoskeletal History: Arthritis GI Medical History: No Pertinent History History: No Pertinent History Psycho-Social History: No Pertinent History Female Reproductive Disorders: No Pertinent History Other Medical History: A FIB, chronic back pain - Past Surgical History Past Surgical History: Yes Neuro Surgical History: No Pertinent History Cardiac: No Pertinent History Respiratory: No Pertinent History Gastrointestinal: No Pertinent History Genitourinary: No Pertinent History Musculoskeletal: No Pertinent History Female Surgical History: Tubal Ligation - Social History Smoking Status: Former smoker Exposure to second hand smoke: No Drug Use: none Patient Lives Alone: No Significant Family History: no pertinent family hx - Nursing Vital Signs Nursing Vital Signs: Initial Vital Signs Temperature 99.0 F 11/21/21 23:28 Pulse Rate 129 H 11/21/21 23:28 Respiratory Rate 16 11/21/21 23:28 Blood Pressure 159/101 11/21/21 23:28 O2 Sat by Pulse Oximetry 96 11/21/21 23:28 Pain Scale Pain Intensity 0 - Physical Exam General Appearance: mild distress, alert Eye Exam: PERRL/EOMI, eyes nml inspection Ears, Nose, Throat Exam: normal ENT inspection, moist mucous membranes, other (Right-sided apparently anterior nosebleed.) Neck Exam: normal inspection, non-tender, supple, full range of motion Respiratory Exam: normal breath sounds, lungs clear, No respiratory distress Cardiovascular Exam: tachycardia, irregular Gastrointestinal/Abdomen Exam: soft, No tenderness, No mass Back Exam: normal inspection, No CVA tenderness, No vertebral tenderness Extremity Exam: normal inspection, normal range of motion Neurologic Exam: alert, oriented x 3, cooperative, normal mood/affect, sensation nml, No motor deficits Skin Exam: normal color, warm, dry SpO2 Interpretation: normal SpO2: 96 O2 Delivery: Room Air Procedures - Additional Procedures Progress: Patient had Rhino Rocket placed the first when she sneezed out the second we us ed a an anterior posterior Rhino Rocket which the balloon would not hold air and finally we put a shorter Rhino Rocket in the right side which seems to have controlled the bleeding. - Course Nursing assessment & vital signs reviewed: Yes EKG Interpreted by Me: RATE (125), A-fib, NORMAL AXIS, Non-specific ST Changes - Radiology Exams Chest X-ray Interpretation: Interpreted by me (Negative except for perhaps borderline cardiomegaly) - CT Exams Head CT Interpretation: No/Intracranial Hemorrhag Ordered Tests: Active Orders 24 hr Category Date Time Status EKG-ER Only STAT Care 11/22/21 00:04 Active IV Insertion STAT Care 11/22/21 00:04 Active CHEST 1 VIEW (PORTABLE) Stat Exams 11/22/21 00:05 Taken HEAD WITHOUT CONTRAST [CT] Stat Exams 11/22/21 00:07 Taken CBC W DIFF Stat Lab 11/22/21 00:40 Completed CMP Stat Lab 11/22/21 00:40 Completed Lactic Acid Stat Lab 11/22/21 00:40 Completed MAGNESIUM Stat Lab 11/22/21 00:40 Completed NT PRO BNP Stat Lab 11/22/21 00:40 Completed PROTIME WITH INR Stat Lab 11/22/21 00:40 Completed PTT Stat Lab 11/22/21 00:40 Completed TROPONIN Q3H Lab 11/22/21 00:40 Completed TROPONIN Q3H Lab 11/22/21 03:15 Ordered TROPONIN Q3H Lab 11/22/21 06:15 Ordered TROPONIN Q3H Lab 11/22/21 09:15 Ordered TROPONIN Q3H Lab 11/22/21 12:15 Ordered UA W/RFX UR CULTURE Stat Lab 11/22/21 00:05 Ordered Medication Summary Generic Name Dose Route Start Last Admin Trade Name Freq PRN Reason Stop Dose Admin Sodium Chloride 1,000 mls @ 100 mls/hr 11/22/21 00:15 11/22/21 00:27 Sodium Chloride 0.9% 1000 Ml IV 12/22/21 00:14 100 mls/hr .Q10H LEILA Administration Discontinued Medications Generic Name Dose Route Start Last Admin Trade Name Freq PRN Reason Stop Dose Admin Metoprolol Tartrate Confirm 11/22/21 00:00 Metoprolol Tartrate 5 Mg/5 Ml Injection Administered 11/22/21 00:01 Dose 5 mg IV .STK-MED ONE Metoprolol Tartrate 5 mg 11/22/21 00:01 11/22/21 00:04 Metoprolol Tartrate 5 Mg/5 Ml Injection IV 11/22/21 00:02 5 mg STAT ONE Administration Metoprolol Tartrate 5 mg 11/22/21 01:07 11/22/21 01:11 Metoprolol Tartrate 5 Mg/5 Ml Injection IV 11/22/21 01:08 5 mg STAT ONE Administration Metoprolol Tartrate Confirm 11/22/21 01:09 Metoprolol Tartrate 5 Mg/5 Ml Injection Administered 11/22/21 01:10 Dose 5 mg IV .STK-MED ONE Lab/Rad Data: Laboratory Result Diagrams 11/22/21 00:40 11/22/21 00:40 Laboratory Results 11/22/21 11/22/21 11/22/21 Range/Units 00:40 00:40 00:40 WBC (4.0-10.5) K/mm3 RBC (4.1-5.4) M/mm3 Hgb (12.0-16.0) gm/dl Hct (35-47) % MCV (78-100) fl MCH (26-32) pg MCHC (32-36) g/dl RDW (11.5-14.0) % Plt Count (150-450) K/mm3 MPV (7.5-11.0) fl Gran % (36.0-66.0) % Eos # (Auto) (0-0.5) Absolute Lymphs (auto) (1.0-4.6) Absolute Monos (auto) (0.0-1.3) Lymphocytes % (24.0-44.0) % Monocytes % (0.0-12.0) % Eosinophils % (0.00-5.0) % Basophils % (0.0-0.4) % Absolute Granulocytes (1.4-6.9) Basophils # (0-0.4) PT 13.8 H (9.4-12.5) SECONDS INR 1.17 (0.8-3.0) APTT 29.3 (25.1-36.5) SECONDS Sodium 139 (137-145) mmol/L Potassium 4.2 (3.5-5.1) mmol/L Chloride 107 (98-107) mmol/L Carbon Dioxide 24 (22-30) mmol/L Anion Gap 12.9 (5-15) MEQ/L BUN 31 H (7-17) mg/dL Creatinine 0.74 (0.52-1.04) mg/dL Estimated GFR > 60.0 ML/MIN Glucose 129 H (74-106) mg/dL Lactic Acid (0.4-2.0) Calcium 8.8 (8.4-10.2) mg/dL Magnesium 1.9 (1.6-2.3) mg/dL Total Bilirubin 0.60 (0.2-1.3) mg/dL AST 35 (14-36) U/L ALT 24 (0-35) U/L Alkaline Phosphatase 117 (38-126) U/L Troponin I < 0.012 (0.000-0.034) ng/mL NT-Pro-B Natriuret Pep 1150 (0-1800) pg/mL Serum Total Protein 6.8 (6.3-8.2) g/dL Albumin 4.0 (3.5-5.0) g/dL 11/22/21 11/22/21 Range/Units 00:40 00:40 WBC 12.4 H (4.0-10.5) K/mm3 RBC 3.34 L (4.1-5.4) M/mm3 Hgb 11.3 L (12.0-16.0) gm/dl Hct 34.4 L (35-47) % MCV 103.0 H (78-100) fl MCH 33.8 H (26-32) pg MCHC 32.8 (32-36) g/dl RDW 13.5 (11.5-14.0) % Plt Count 225 (150-450) K/mm3 MPV 10.4 (7.5-11.0) fl Gran % 80.6 H (36.0-66.0) % Eos # (Auto) 0.13 (0-0.5) Absolute Lymphs (auto) 1.46 (1.0-4.6) Absolute Monos (auto) 0.74 (0.0-1.3) Lymphocytes % 11.8 L (24.0-44.0) % Monocytes % 6.0 (0.0-12.0) % Eosinophils % 1.0 (0.00-5.0) % Basophils % 0.6 (0.0-0.4) % Absolute Granulocytes 9.98 H (1.4-6.9) Basophils # 0.08 (0-0.4) PT (9.4-12.5) SECONDS INR (0.8-3.0) APTT (25.1-36.5) SECONDS Sodium (137-145) mmol/L Potassium (3.5-5.1) mmol/L Chloride (98-107) mmol/L Carbon Dioxide (22-30) mmol/L Anion Gap (5-15) MEQ/L BUN (7-17) mg/dL Creatinine (0.52-1.04) mg/dL Estimated GFR ML/MIN Glucose (74-106) mg/dL Lactic Acid 1.2 (0.4-2.0) Calcium (8.4-10.2) mg/dL Magnesium (1.6-2.3) mg/dL Total Bilirubin (0.2-1.3) mg/dL AST (14-36) U/L ALT (0-35) U/L Alkaline Phosphatase (38-126) U/L Troponin I (0.000-0.034) ng/mL NT-Pro-B Natriuret Pep (0-1800) pg/mL Serum Total Protein (6.3-8.2) g/dL Albumin (3.5-5.0) g/dL - Progress Progress: improved Air Movement: good Blood Culture(s) Obtained: No Antibiotics given: No Discussed with Dr.: Elam - Departure Departure Disposition: Observation Clinical Impression: Epistaxis, Atrial fibrillation with RVR, Syncope Condition: Stable Critical Care Time: No Referrals: HUI FREY MD [Primary Care Provider] - Follow up/PCP as directed
[2021-11-22] MEDS ORDERED: Sodium Chloride 0.9% 1000 ML 1,000 ML IV SCH (00:15)
[2021-11-22 00:41] LABS: Absolute Neutrophil Ct (ANC) 9.98 (1.4-6.9); Basophil (Absolute #) 0.08 (0-0.4); Eosinophil (Absolute #) 0.13 (0-0.5); Hematocrit 34.4 % (35-47); Hemoglobin 11.3 gm/dl (12.0-16.0); Lymphocyte (Absolute #) 1.46 (1.0-4.6); Lymphocytes % 11.8 % (24.0-44.0); Mean Corpuscular Hemoglobin 33.8 pg (26-32); Mean Corpuscular Hgb Concent. 32.8 g/dl (32-36); Mean Platelet Volume 10.4 fl (7.5-11.0); Monocyte (Absolute #) 0.74 (0.0-1.3); Neutrophil % 80.6 % (36.0-66.0); Platelet Count 225 K/mm3 (150-450); Red Blood Count 3.34 M/mm3 (4.1-5.4); Red Cell Distribution Width 13.5 % (11.5-14.0); White Blood Count 12.4 K/mm3 (4.0-10.5)
[2021-11-22 00:53] LABS: INR 1.17 (0.8-3.0); PROTIME 13.8 SECONDS (9.4-12.5)
[2021-11-22 00:55] LABS: PTT 29.3 SECONDS (25.1-36.5)
[2021-11-22 01:06] LABS: ALKALINE PHOSPHATASE 117 U/L (38-126); ANION GAP 12.9 MEQ/L (5-15); BLOOD UREA NITROGEN 31 mg/dL (7-17); CHLORIDE 107 mmol/L (98-107); Calcium 8.8 mg/dL (8.4-10.2); Carbon Dioxide 24 mmol/L (22-30); Creatinine 1 0.74 mg/dL (0.52-1.04); EST GLOMERULAR FILTRATION RATE > 60.0 ML/MIN; Glucose 129 mg/dL (74-106); MAGNESIUM 1.9 mg/dL (1.6-2.3); NT PRO BNP 1150 pg/mL (0-1800); Potassium 4.2 mmol/L (3.5-5.1); SGOT/AST 35 U/L (14-36); SGPT/ALT 24 U/L (0-35); SODIUM 139 mmol/L (137-145); Total Protein 6.8 g/dL (6.3-8.2)
[2021-11-22] MEDS ORDERED: Hydromorphone 1 mg/ml Injection IV PRN (01:29)
[2021-11-22] MEDS ORDERED: LOPRESSOR 5 MG/5 ML INJECTION IV SCH (01:45)
[2021-11-22 02:08] LABS: Appearance CLEAR (CLEAR); Bilirubin NEGATIVE (NEGATIVE); Blood SMALL Ery/ul (0-5); Glucose NEGATIVE (NEGATIVE); Ketones NEGATIVE (NEGATIVE); Leukocyte Esterase NEGATIVE (NEGATIVE); Nitrite NEGATIVE (NEGATIVE); Protein,Urine Dip NEGATIVE (Negative); Specific Gravity 1.004 (1.005-1.025); Urobilinogen NEGATIVE mg/dL (0-1)
[2021-11-22 02:39] LABS: INFLUENZA A NEGATIVE (NEGATIVE); INFLUENZA B NEGATIVE (NEGATIVE); RESPIRATORY SYNCTIAL VIRUS NEGATIVE (Negative); SARS-CoV-2 Xpert Express NEGATIVE (NEGATIVE)
[2021-11-22 05:13] LABS: Absolute Neutrophil Ct (ANC) 8.12 (1.4-6.9); Basophil (Absolute #) 0.07 (0-0.4); Eosinophil % 0.5 % (0.00-5.0); Eosinophil (Absolute #) 0.05 (0-0.5); Hematocrit 32.9 % (35-47); Hemoglobin 10.5 gm/dl (12.0-16.0); Lymphocyte (Absolute #) 1.77 (1.0-4.6); Lymphocytes % 16.6 % (24.0-44.0); Mean Cell Volume 104.4 fl (78-100); Mean Corpuscular Hemoglobin 33.3 pg (26-32); Mean Corpuscular Hgb Concent. 31.9 g/dl (32-36); Mean Platelet Volume 11.1 fl (7.5-11.0); Monocyte (Absolute #) 0.64 (0.0-1.3); Neutrophil % 76.2 % (36.0-66.0); Platelet Count 222 K/mm3 (150-450); Red Blood Count 3.15 M/mm3 (4.1-5.4); Red Cell Distribution Width 13.8 % (11.5-14.0); White Blood Count 10.7 K/mm3 (4.0-10.5)
[2021-11-22 05:35] LABS: ALBUMIN 3.9 g/dL (3.5-5.0); ALKALINE PHOSPHATASE 97 U/L (38-126); ANION GAP 11.7 MEQ/L (5-15); BLOOD UREA NITROGEN 32 mg/dL (7-17); CHLORIDE 107 mmol/L (98-107); Calcium 8.4 mg/dL (8.4-10.2); Carbon Dioxide 25 mmol/L (22-30); Creatinine 1 0.72 mg/dL (0.52-1.04); EST GLOMERULAR FILTRATION RATE > 60.0 ML/MIN; Glucose 131 mg/dL (74-106); Potassium 3.9 mmol/L (3.5-5.1); SGOT/AST 36 U/L (14-36); SGPT/ALT 24 U/L (0-35); SODIUM 140 mmol/L (137-145); Total Protein 6.7 g/dL (6.3-8.2)
[2021-11-22] MEDS ORDERED: KEFZOL 1 GM/50 ML PREMIX** 1 GM/50 ML IVPB IV SCH (06:00)
[2021-11-22 06:42] LABS: INR 1.25 (0.8-3.0); PROTIME 14.7 SECONDS (9.4-12.5)
[2021-11-22] MEDS: LOPRESSOR 5 MG/5 ML INJECTION IV SCH ×3 (07:56→18:11)
--- NOTE | 2021-11-22 08:43 | XRAY ---
Indication: Syncope. Comparison: July 01, 2020. Portable apical lordotic chest unchanged again hyperinflated and clear with a few incidental tiny calcified granulomas. Heart again borderline enlarged with stable small hiatal hernia. Bony thorax intact again with osteopenia, degenerative changes, and scoliosis. No new/acute findings.
--- NOTE | 2021-11-22 08:50 | XRAY ---
Indication: Syncope. Status post fall with head injury. Epistaxis. Blood thinner therapy. Multiple contiguous axial images obtained through the head without contrast. Comparison: None Age-appropriate global atrophy. No acute intracranial hemorrhage, abnormal extra-axial fluid collection, or mass effect. Fourth ventricle is midline without hydrocephalus. [place]-white matter differentiation is preserved. Bony calvarium intact. Balloon catheter in right nostril with presumed blood products in the right nasal passage and nasopharynx. Partial opacification of both ethmoid/maxillary sinuses with maxillary sinus fluid leveling presumed related. Mastoid air cells are clear. Impression: 1. No fracture or acute intracranial abnormalities. 2. Opacification paranasal sinuses and right nasal passage presumed posttraumatic. Comment: Preliminary interpretation made by [facility]. No critical discrepancy.
[2021-11-22] MEDS: THERAGRAN MULTIVITAMIN PO SCH (09:39)
[2021-11-22] MEDS: LASIX 20 MG PO SCH (09:39)
[2021-11-22] MEDS: Calcium 500MG W/Vit D Tablet PO SCH (09:39)
[2021-11-22] MEDS: ULTRAM 50 MG PO SCH ×5 (09:40→21:44)
[2021-11-22] MEDS: Colace 100 MG PO SCH (09:40)
[2021-11-22] MEDS: Sodium Chloride 0.9% 1000 ML 1,000 ML IV SCH ×2 (09:43→18:16)
[2021-11-22] MEDS ORDERED: BRIMONIDINE OP SCH (10:00)
[2021-11-22] MEDS ORDERED: NON-FORMULARY ITEM (Calcium Carbonate [Calcium] 500 MG Tablet) PO SCH (10:00)
[2021-11-22] MEDS ORDERED: NON-FORMULARY ITEM (Multivitamin [Multiple Vitamins] 1 EACH Tablet) PO SCH (10:00)
[2021-11-22] MEDS ORDERED: DORZOLAMIDE OP SCH (10:00)
[2021-11-22] MEDS ORDERED: NON-FORMULARY ITEM (Dorzolamide Hcl/Pf [Dorzolamide 2% Eye Drop] 10 ML Drops) OP SCH (10:00)
[2021-11-22] MEDS ORDERED: [UNRECOGNIZED DRUG - OTHER] OP SCH (10:00)
--- NOTE | 2021-11-22 12:55 | PCM.HP ---
History of Present Illness - Chief Complaint Chief Complaint: c/o nose bleed 7-8 hours ago, syncopal episode today History of Present Illness: is a 76 year old female.who had a nosebleeds which started approximately 7 hours prior to arrival by ambulance in the ER. Patient is on E liquis 5 mg a day during the evening she had one episode where she became very lightheaded and had a syncopal episode and fell hitting her head on the tub. She is on diltiazem apparently to control her rate with atrial fib however she was at a rate of about 150 at the time of my exam. Her problems are 1 atrial fib with RVR 2 epistaxis and 3 syncope with a blow to the head. - Review of Systems Constitutional: No Fever, No Chills Eyes: No Symptoms Ears, Nose, & Throat: Epistaxis Respiratory: No Cough, No Short Of Breath Cardiac: No Chest Pain, No Edema, No Syncope Abdominal/Gastrointestinal: No Abdominal Pain, No Nausea, No Vomiting, No Diarrhea Genitourinary Symptoms: No Dysuria Musculoskeletal: No Back Pain, No Neck Pain Skin: No Rash Neurological: No Dizziness, No Focal Weakness, No Sensory Changes Psychological: No Symptoms Endocrine: No Symptoms Hematologic/Lymphatic: No Symptoms Immunological/Allergic: No Symptoms Medications & Allergies Home Medications: Home Medication List Apixaban [Eliquis] 5 mg PO DAILY 07/01/20 [History Confirmed 11/22/21] Brimonidine/Dorzolamide/Pf [Brimonidine 0.15%-Dorzolam 2%] 1 drops OP BID 07/01/20 [History Confirmed 11/22/21] Calcium Carbonate [Calcium] 500 mg PO DAILY 07/01/20 [History Confirmed 11/22/21] Docusate Sodium [Colace] 100 mg PO DAILY 07/01/20 [History Confirmed 11/22/21] Dorzolamide HCl/Pf [Dorzolamide 2% Eye Drop] 1 drop OP BID 07/01/20 [History Confirmed 11/22/21] Latanoprost 1 drops OP HS 07/01/20 [History Confirmed 11/22/21] Multivitamin [Multiple Vitamins] 1 each PO DAILY 07/01/20 [History Confirmed 11/22/21] Tramadol HCl 50 mg [Ultram 50 mg] 50 mg PO QID 10/22/20 [History Confirmed 11/22/21] Diltiazem HCl [Diltiazem 24Hr ER] 240 mg PO HS 11/22/21 [History Confirmed 11/22/21] Furosemide [Lasix] 10 mg PO DAILY 11/22/21 [History Confirmed 11/22/21] Allergies/Adverse Reactions: Allergies Allergy/AdvReac Type Severity Reaction Status Date / Time No Known Drug Allergies Allergy Verified 11/21/21 23:48 - Past Medical History Past Medical History: Yes Neurological History: No Pertinent History ENT History: Glaucoma Cardiac History: Arrhythmia, Hypertension Respiratory History: Emphysema Endocrine Medical History: No Pertinent History Musculoskelatal History: Arthritis GI Medical History: No Pertinent History History: No Pertinent History Pyscho-Social History: No Pertinent History Reproductive Disorders: No Pertinent History Comment: A FIB, chronic back pain - Female History Are you now?: No - Past Surgical History Past Surgical History: Yes Neuro Surgical History: No Pertinent History Cardiac History: No Pertinent History Respiratory Surgery: No Pertinent History GI Surgical History: No Pertinent History Genitourinary Surgical Hx: No Pertinent History Musculskeletal Surgical Hx: No Pertinent History Female Surgical History: Tubal Ligation - Social History Smoking Status: Former smoker Exposure to second hand smoke: No Alcohol: None Drug Use: none Significant Family History: no pertinent family hx - Physical Exam Vital Signs: Vital Signs - 24 hr Temp Pulse Resp BP Pulse Ox 11/22/21 08:00 98.4 F 104 H 22 129/79 97 11/22/21 03:35 97.1 F 102 H 16 152/107 96 11/22/21 02:02 98 H 16 131/85 97 11/22/21 01:30 105 H 18 122/92 97 11/22/21 01:28 96 11/22/21 01:15 117 H 19 152/98 96 11/22/21 00:04 148 H 16 161/101 99 11/21/21 23:28 99.0 F 129 H 16 159/101 96 General Appearance: no apparent distress, alert Neurologic Exam: alert, oriented x 3, cooperative, normal mood/affect, nml cerebellar function, nml station & gait, sensation nml, No motor deficits Eye Exam: PERRL/EOMI, eyes nml inspection Ears, Nose, Throat Exam: normal ENT inspection, TMs normal, pharynx normal, moist mucous membranes, other (nasal packing right nostril) Neck Exam: normal inspection, non-tender, supple, full range of motion Respiratory Exam: normal breath sounds, lungs clear, No respiratory distress Cardiovascular Exam: regular rate/rhythm, normal heart sounds, normal peripheral pulses Gastrointestinal/Abdomen Exam: soft, normal bowel sounds, No tenderness, No mass Back Exam: normal inspection, normal range of motion, No CVA tenderness, No vertebral tenderness Extremity Exam: normal inspection, normal range of motion, pelvis stable Skin Exam: normal color, warm, dry, No rash Lymphatic Exam: No adenopathy Results - Labs Lab/Micro Results: Lab Results-Last 24 Hours 11/22/21 11/22/21 11/22/21 Range/Units 00:40 00:40 00:40 WBC 12.4 H (4.0-10.5) K/mm3 RBC 3.34 L (4.1-5.4) M/mm3 Hgb 11.3 L (12.0-16.0) gm/dl Hct 34.4 L (35-47) % MCV 103.0 H (78-100) fl MCH 33.8 H (26-32) pg MCHC 32.8 (32-36) g/dl RDW 13.5 (11.5-14.0) % Plt Count 225 (150-450) K/mm3 MPV 10.4 (7.5-11.0) fl Gran % 80.6 H (36.0-66.0) % Eos # (Auto) 0.13 (0-0.5) Absolute Lymphs (auto) 1.46 (1.0-4.6) Absolute Monos (auto) 0.74 (0.0-1.3) Lymphocytes % 11.8 L (24.0-44.0) % Monocytes % 6.0 (0.0-12.0) % Eosinophils % 1.0 (0.00-5.0) % Basophils % 0.6 (0.0-0.4) % Absolute Granulocytes 9.98 H (1.4-6.9) Basophils # 0.08 (0-0.4) PT (9.4-12.5) SECONDS INR (0.8-3.0) APTT (25.1-36.5) SECONDS Sodium 139 (137-145) mmol/L Potassium 4.2 (3.5-5.1) mmol/L Chloride 107 (98-107) mmol/L Carbon Dioxide 24 (22-30) mmol/L Anion Gap 12.9 (5-15) MEQ/L BUN 31 H (7-17) mg/dL Creatinine 0.74 (0.52-1.04) mg/dL Estimated GFR > 60.0 ML/MIN Glucose 129 H (74-106) mg/dL Lactic Acid 1.2 (0.4-2.0) Calcium 8.8 (8.4-10.2) mg/dL Magnesium 1.9 (1.6-2.3) mg/dL Total Bilirubin 0.60 (0.2-1.3) mg/dL AST 35 (14-36) U/L ALT 24 (0-35) U/L Alkaline Phosphatase 117 (38-126) U/L Troponin I (0.000-0.034) ng/mL NT-Pro-B Natriuret Pep 1150 (0-1800) pg/mL Serum Total Protein 6.8 (6.3-8.2) g/dL Albumin 4.0 (3.5-5.0) g/dL Urine Color (YELLOW) Urine Appearance (CLEAR) Urine pH (5-6) Ur Specific [place] (1.005-1.025) Urine Protein (Negative) Urine Ketones (NEGATIVE) Urine Blood (0-5) Bk/ul Urine Nitrite (NEGATIVE) Urine Bilirubin (NEGATIVE) Urine Urobilinogen (0-1) mg/dL Ur Leukocyte Esterase (NEGATIVE) Urine WBC (Auto) (0-5) /HPF Urine RBC (Auto) (0-2) /HPF Urine Culture Reflexed (NO) Urine Glucose (NEGATIVE) mg/dL Influenza Type A Ag (NEGATIVE) Influenza Type B Ag (NEGATIVE) RSV (PCR) (Negative) SARS-CoV-2 (PCR) (NEGATIVE) 11/22/21 11/22/21 11/22/21 Range/Units 00:40 00:40 01:53 WBC (4.0-10.5) K/mm3 RBC (4.1-5.4) M/mm3 Hgb (12.0-16.0) gm/dl Hct (35-47) % MCV (78-100) fl MCH (26-32) pg MCHC (32-36) g/dl RDW (11.5-14.0) % Plt Count (150-450) K/mm3 MPV (7.5-11.0) fl Gran % (36.0-66.0) % Eos # (Auto) (0-0.5) Absolute Lymphs (auto) (1.0-4.6) Absolute Monos (auto) (0.0-1.3) Lymphocytes % (24.0-44.0) % Monocytes % (0.0-12.0) % Eosinophils % (0.00-5.0) % Basophils % (0.0-0.4) % Absolute Granulocytes (1.4-6.9) Basophils # (0-0.4) PT 13.8 H (9.4-12.5) SECONDS INR 1.17 (0.8-3.0) APTT 29.3 (25.1-36.5) SECONDS Sodium (137-145) mmol/L Potassium (3.5-5.1) mmol/L Chloride (98-107) mmol/L Carbon Dioxide (22-30) mmol/L Anion Gap (5-15) MEQ/L BUN (7-17) mg/dL Creatinine (0.52-1.04) mg/dL Estimated GFR ML/MIN Glucose (74-106) mg/dL Lactic Acid (0.4-2.0) Calcium (8.4-10.2) mg/dL Magnesium (1.6-2.3) mg/dL Total Bilirubin (0.2-1.3) mg/dL AST (14-36) U/L ALT (0-35) U/L Alkaline Phosphatase (38-126) U/L Troponin I < 0.012 (0.000-0.034) ng/mL NT-Pro-B Natriuret Pep (0-1800) pg/mL Serum Total Protein (6.3-8.2) g/dL Albumin (3.5-5.0) g/dL Urine Color (YELLOW) Urine Appearance (CLEAR) Urine pH (5-6) Ur Specific [place] (1.005-1.025) Urine Protein (Negative) Urine Ketones (NEGATIVE) Urine Blood (0-5) Bk/ul Urine Nitrite (NEGATIVE) Urine Bilirubin (NEGATIVE) Urine Urobilinogen (0-1) mg/dL Ur Leukocyte Esterase (NEGATIVE) Urine WBC (Auto) (0-5) /HPF Urine RBC (Auto) (0-2) /HPF Urine Culture Reflexed (NO) Urine Glucose (NEGATIVE) mg/dL Influenza Type A Ag NEGATIVE (NEGATIVE) Influenza Type B Ag NEGATIVE (NEGATIVE) RSV (PCR) NEGATIVE (Negative) SARS-CoV-2 (PCR) NEGATIVE (NEGATIVE) 11/22/21 11/22/21 11/22/21 Range/Units 02:01 03:15 04:30 WBC (4.0-10.5) K/mm3 RBC (4.1-5.4) M/mm3 Hgb (12.0-16.0) gm/dl Hct (35-47) % MCV (78-100) fl MCH (26-32) pg MCHC (32-36) g/dl RDW (11.5-14.0) % Plt Count (150-450) K/mm3 MPV (7.5-11.0) fl Gran % (36.0-66.0) % Eos # (Auto) (0-0.5) Absolute Lymphs (auto) (1.0-4.6) Absolute Monos (auto) (0.0-1.3) Lymphocytes % (24.0-44.0) % Monocytes % (0.0-12.0) % Eosinophils % (0.00-5.0) % Basophils % (0.0-0.4) % Absolute Granulocytes (1.4-6.9) Basophils # (0-0.4) PT (9.4-12.5) SECONDS INR (0.8-3.0) APTT (25.1-36.5) SECONDS Sodium (137-145) mmol/L Potassium (3.5-5.1) mmol/L Chloride (98-107) mmol/L Carbon Dioxide (22-30) mmol/L Anion Gap (5-15) MEQ/L BUN (7-17) mg/dL Creatinine (0.52-1.04) mg/dL Estimated GFR ML/MIN Glucose (74-106) mg/dL Lactic Acid (0.4-2.0) Calcium (8.4-10.2) mg/dL Magnesium (1.6-2.3) mg/dL Total Bilirubin (0.2-1.3) mg/dL AST (14-36) U/L ALT (0-35) U/L Alkaline Phosphatase (38-126) U/L Troponin I < 0.012 < 0.012 (0.000-0.034) ng/mL NT-Pro-B Natriuret Pep (0-1800) pg/mL Serum Total Protein (6.3-8.2) g/dL Albumin (3.5-5.0) g/dL Urine Color STRAW (YELLOW) Urine Appearance CLEAR (CLEAR) Urine pH 8.0 (5-6) Ur Specific [place] 1.004 (1.005-1.025) Urine Protein NEGATIVE (Negative) Urine Ketones NEGATIVE (NEGATIVE) Urine Blood SMALL (0-5) Bk/ul Urine Nitrite NEGATIVE (NEGATIVE) Urine Bilirubin NEGATIVE (NEGATIVE) Urine Urobilinogen NEGATIVE (0-1) mg/dL Ur Leukocyte Esterase NEGATIVE (NEGATIVE) Urine WBC (Auto) NONE (0-5) /HPF Urine RBC (Auto) NONE (0-2) /HPF Urine Culture Reflexed NO (NO) Urine Glucose NEGATIVE (NEGATIVE) mg/dL Influenza Type A Ag (NEGATIVE) Influenza Type B Ag (NEGATIVE) RSV (PCR) (Negative) SARS-CoV-2 (PCR) (NEGATIVE) 11/22/21 11/22/21 11/22/21 Range/Units 04:30 04:30 04:30 WBC 10.7 H (4.0-10.5) K/mm3 RBC 3.15 L (4.1-5.4) M/mm3 Hgb 10.5 L (12.0-16.0) gm/dl Hct 32.9 L (35-47) % MCV 104.4 H (78-100) fl MCH 33.3 H (26-32) pg MCHC 31.9 L (32-36) g/dl RDW 13.8 (11.5-14.0) % Plt Count 222 (150-450) K/mm3 MPV 11.1 H (7.5-11.0) fl Gran % 76.2 H (36.0-66.0) % Eos # (Auto) 0.05 (0-0.5) Absolute Lymphs (auto) 1.77 (1.0-4.6) Absolute Monos (auto) 0.64 (0.0-1.3) Lymphocytes % 16.6 L (24.0-44.0) % Monocytes % 6.0 (0.0-12.0) % Eosinophils % 0.5 (0.00-5.0) % Basophils % 0.7 (0.0-0.4) % Absolute Granulocytes 8.12 H (1.4-6.9) Basophils # 0.07 (0-0.4) PT 14.7 H (9.4-12.5) SECONDS INR 1.25 (0.8-3.0) APTT (25.1-36.5) SECONDS Sodium 140 (137-145) mmol/L Potassium 3.9 (3.5-5.1) mmol/L Chloride 107 (98-107) mmol/L Carbon Dioxide 25 (22-30) mmol/L Anion Gap 11.7 (5-15) MEQ/L BUN 32 H (7-17) mg/dL Creatinine 0.72 (0.52-1.04) mg/dL Estimated GFR > 60.0 ML/MIN Glucose 131 H (74-106) mg/dL Lactic Acid (0.4-2.0) Calcium 8.4 (8.4-10.2) mg/dL Magnesium (1.6-2.3) mg/dL Total Bilirubin 0.70 (0.2-1.3) mg/dL AST 36 (14-36) U/L ALT 24 (0-35) U/L Alkaline Phosphatase 97 (38-126) U/L Troponin I (0.000-0.034) ng/mL NT-Pro-B Natriuret Pep (0-1800) pg/mL Serum Total Protein 6.7 (6.3-8.2) g/dL Albumin 3.9 (3.5-5.0) g/dL Urine Color (YELLOW) Urine Appearance (CLEAR) Urine pH (5-6) Ur Specific [place] (1.005-1.025) Urine Protein (Negative) Urine Ketones (NEGATIVE) Urine Blood (0-5) Bk/ul Urine Nitrite (NEGATIVE) Urine Bilirubin (NEGATIVE) Urine Urobilinogen (0-1) mg/dL Ur Leukocyte Esterase (NEGATIVE) Urine WBC (Auto) (0-5) /HPF Urine RBC (Auto) (0-2) /HPF Urine Culture Reflexed (NO) Urine Glucose (NEGATIVE) mg/dL Influenza Type A Ag (NEGATIVE) Influenza Type B Ag (NEGATIVE) RSV (PCR) (Negative) SARS-CoV-2 (PCR) (NEGATIVE) 11/22/21 Range/Units 08:51 WBC (4.0-10.5) K/mm3 RBC (4.1-5.4) M/mm3 Hgb (12.0-16.0) gm/dl Hct (35-47) % MCV (78-100) fl MCH (26-32) pg MCHC (32-36) g/dl RDW (11.5-14.0) % Plt Count (150-450) K/mm3 MPV (7.5-11.0) fl Gran % (36.0-66.0) % Eos # (Auto) (0-0.5) Absolute Lymphs (auto) (1.0-4.6) Absolute Monos (auto) (0.0-1.3) Lymphocytes % (24.0-44.0) % Monocytes % (0.0-12.0) % Eosinophils % (0.00-5.0) % Basophils % (0.0-0.4) % Absolute Granulocytes (1.4-6.9) Basophils # (0-0.4) PT (9.4-12.5) SECONDS INR (0.8-3.0) APTT (25.1-36.5) SECONDS Sodium (137-145) mmol/L Potassium (3.5-5.1) mmol/L Chloride (98-107) mmol/L Carbon Dioxide (22-30) mmol/L Anion Gap (5-15) MEQ/L BUN (7-17) mg/dL Creatinine (0.52-1.04) mg/dL Estimated GFR ML/MIN Glucose (74-106) mg/dL Lactic Acid (0.4-2.0) Calcium (8.4-10.2) mg/dL Magnesium (1.6-2.3) mg/dL Total Bilirubin (0.2-1.3) mg/dL AST (14-36) U/L ALT (0-35) U/L Alkaline Phosphatase (38-126) U/L Troponin I < 0.012 (0.000-0.034) ng/mL NT-Pro-B Natriuret Pep (0-1800) pg/mL Serum Total Protein (6.3-8.2) g/dL Albumin (3.5-5.0) g/dL Urine Color (YELLOW) Urine Appearance (CLEAR) Urine pH (5-6) Ur Specific [place] (1.005-1.025) Urine Protein (Negative) Urine Ketones (NEGATIVE) Urine Blood (0-5) Bk/ul Urine Nitrite (NEGATIVE) Urine Bilirubin (NEGATIVE) Urine Urobilinogen (0-1) mg/dL Ur Leukocyte Esterase (NEGATIVE) Urine WBC (Auto) (0-5) /HPF Urine RBC (Auto) (0-2) /HPF Urine Culture Reflexed (NO) Urine Glucose (NEGATIVE) mg/dL Influenza Type A Ag (NEGATIVE) Influenza Type B Ag (NEGATIVE) RSV (PCR) (Negative) SARS-CoV-2 (PCR) (NEGATIVE) - Radiology Impressions Radiology Exams & Impressions: Radiology Procedures Category Date Time Status CHEST 1 VIEW (PORTABLE) Stat Exams 11/22/21 00:05 Completed HEAD WITHOUT CONTRAST [CT] Stat Exams 11/22/21 00:[address]/HEAD WITHOUT CONTRAST Indication: Syncope. Status post fall with head injury. Epistaxis. Blood thinner therapy. Multiple contiguous axial images obtained through the head without contrast. Comparison: None Age-appropriate global atrophy. No acute intracranial hemorrhage, abnormal extra-axial fluid collection, or mass effect. Fourth ventricle is midline without hydrocephalus. [place]-white matter differentiation is preserved. Bony calvarium intact. Balloon catheter in right nostril with presumed blood products in the right nasal passage and nasopharynx. Partial opacification of both ethmoid/maxillary sinuses with maxillary sinus fluid leveling presumed related. Mastoid air cells are clear. Impression: 1. No fracture or acute intracranial abnormalities. 2. Opacification paranasal sinuses and right nasal passage presumed posttraumatic. Assessment/Plan (1) Epistaxis Current Visit: Yes Status: Acute Assessment & Plan: Chief Complaint Diagnosis epistaxis Allergies Allergy/AdvReac Type Severity Reaction Status Date / Time No Known Drug Allergies Allergy Verified 11/21/21 23:48 Vital Signs (Last 24 hours) Temp Pulse Resp BP Pulse Ox 11/22/21 08:00 98.4 F 104 H 22 129/79 97 11/22/21 03:35 97.1 F 102 H 16 152/107 96 11/22/21 02:02 98 H 16 131/85 97 11/22/21 01:30 105 H 18 122/92 97 11/22/21 01:28 96 11/22/21 01:15 117 H 19 152/98 96 11/22/21 00:04 148 H 16 161/101 99 11/21/21 23:28 99.0 F 129 H 16 159/101 96 Home Medications Medication Instructions Recorded Confirmed Last Taken Type Diltiazem HCl [Diltiazem 24Hr ER] 240 mg PO HS 11/22/21 11/22/21 11/22/21 History Furosemide [Lasix] 10 mg PO DAILY 11/22/21 11/22/21 11/21/21 History Current Medications Generic Name Dose Route Start Last Admin Trade Name Freq PRN Reason Stop Dose Admin Calcium Carbonate 1 tab 11/22/21 10:00 11/22/21 09:39 Calcium Carbonate 500 Mg/Vitamin D 1 Tab Tablet PO 12/22/21 09:59 1 tab DAILY LEILA Administration Diltiazem HCl 240 mg 11/22/21 22:00 Diltiazem Hcl 120 Mg Cap.Sr.24h PO 12/22/21 21:59 HS LEILA Docusate Sodium 100 mg 11/22/21 10:00 11/22/21 09:40 Docusate Sodium 100 Mg Capsule PO 12/22/21 09:59 100 mg DAILY LEILA Administration Furosemide 10 mg 11/22/21 10:00 11/22/21 09:39 Furosemide 20 Mg Tablet PO 12/22/21 09:59 10 mg DAILY LEILA Administration Hydromorphone HCl 0.5 mg 11/22/21 01:29 Hydromorphone 1 Mg/1ml Inj 1 Mg/Ml Syringe IV 11/27/21 01:28 Q4H PRN PRN PAIN Sodium Chloride 1,000 mls @ 100 mls/hr 11/22/21 01:30 11/22/21 09:43 Sodium Chloride 0.9% 1000 Ml IV 12/22/21 01:29 100 mls/hr .Q10H LEILA Administration Latanoprost 0 ml 11/22/21 22:00 Latanoprost 2.5 Ml Bottle OP 12/22/21 21:59 HS LEILA Metoprolol Tartrate 5 mg 11/22/21 08:00 11/22/21 12:46 Metoprolol Tartrate 5 Mg/5 Ml Injection IV 12/22/21 07:59 5 mg Q6HT LEILA Administration Multivitamins Therapeutic 1 tab 11/22/21 10:00 11/22/21 09:39 Multivitamins,Therapeutic 1 Tab Tab PO 12/22/21 09:59 1 tab DAILY LEILA Administration Tramadol HCl 50 mg 11/22/21 10:00 11/22/21 09:40 Tramadol Hcl 50 Mg Tablet PO 12/22/21 09:59 50 mg QID LEILA Administration Discontinued Medications Generic Name Dose Route Start Last Admin Trade Name Freq PRN Reason Stop Dose Admin Sodium Chloride 1,000 mls @ 100 mls/hr 11/22/21 00:15 11/22/21 00:27 Sodium Chloride 0.9% 1000 Ml IV 12/22/21 00:14 100 mls/hr .Q10H LEILA Administration Cefazolin Sodium/Dextrose 1 gm in 50 mls @ 100 mls/hr 11/22/21 06:00 Kefzol 1 Gm/50 Ml Premix IV 11/25/21 05:59 Q8HT LEILA Metoprolol Tartrate Confirm 11/22/21 00:00 Metoprolol Tartrate 5 Mg/5 Ml Injection Administered 11/22/21 00:01 Dose 5 mg IV .STK-MED ONE Metoprolol Tartrate 5 mg 11/22/21 00:01 11/22/21 00:04 Metoprolol Tartrate 5 Mg/5 Ml Injection IV 11/22/21 00:02 5 mg STAT ONE Administration Metoprolol Tartrate 5 mg 11/22/21 01:07 11/22/21 01:11 Metoprolol Tartrate 5 Mg/5 Ml Injection IV 11/22/21 01:08 5 mg STAT ONE Administration Metoprolol Tartrate Confirm 11/22/21 01:09 Metoprolol Tartrate 5 Mg/5 Ml Injection Administered 11/22/21 01:10 Dose 5 mg IV .STK-MED ONE Metoprolol Tartrate 5 mg 11/22/21 01:45 11/22/21 07:56 Metoprolol Tartrate 5 Mg/5 Ml Injection IV 12/22/21 01:44 Not Given Q6H LEILA Intake & Output (Last 24 hours) 11/20/21 11/21/21 11/22/21 11/23/21 11:59 11:59 11:59 11:59 Intake Total 240 Output Total 1999 Balance -1760 Weight 51.4 kg Laboratory Results (Last 24 hours) 11/22/21 11/22/21 11/22/21 12:25 08:51 04:30 WBC RBC Hgb Hct MCV MCH MCHC RDW Plt Count MPV Gran % Eos # (Auto) Absolute Lymphs (auto) Absolute Monos (auto) Lymphocytes % Monocytes % Eosinophils % Basophils % Absolute Granulocytes Basophils # PT 14.7 H INR 1.25 APTT Sodium Potassium Chloride Carbon Dioxide Anion Gap BUN Creatinine Estimated GFR Glucose Lactic Acid Calcium Magnesium Total Bilirubin AST ALT Alkaline Phosphatase Troponin I < 0.012 < 0.012 NT-Pro-B Natriuret Pep Serum Total Protein Albumin Urine Color Urine Appearance Urine pH Ur Specific [place] Urine Protein Urine Ketones Urine Blood Urine Nitrite Urine Bilirubin Urine Urobilinogen Ur Leukocyte Esterase Urine WBC (Auto) Urine RBC (Auto) Urine Culture Reflexed Urine Glucose Influenza Type A Ag Influenza Type B Ag RSV (PCR) SARS-CoV-2 (PCR) 11/22/21 11/22/21 11/22/21 04:30 04:30 04:30 WBC 10.7 H RBC 3.15 L Hgb 10.5 L Hct 32.9 L MCV 104.4 H MCH 33.3 H MCHC 31.9 L RDW 13.8 Plt Count 222 MPV 11.1 H Gran % 76.2 H Eos # (Auto) 0.05 Absolute Lymphs (auto) 1.77 Absolute Monos (auto) 0.64 Lymphocytes % 16.6 L Monocytes % 6.0 Eosinophils % 0.5 Basophils % 0.7 Absolute Granulocytes 8.12 H Basophils # 0.07 PT INR APTT Sodium 140 Potassium 3.9 Chloride 107 Carbon Dioxide 25 Anion Gap 11.7 BUN 32 H Creatinine 0.72 Estimated GFR > 60.0 Glucose 131 H Lactic Acid Calcium 8.4 Magnesium Total Bilirubin 0.70 AST 36 ALT 24 Alkaline Phosphatase 97 Troponin I < 0.012 NT-Pro-B Natriuret Pep Serum Total Protein 6.7 Albumin 3.9 Urine Color Urine Appearance Urine pH Ur Specific [place] Urine Protein Urine Ketones Urine Blood Urine Nitrite Urine Bilirubin Urine Urobilinogen Ur Leukocyte Esterase Urine WBC (Auto) Urine RBC (Auto) Urine Culture Reflexed Urine Glucose Influenza Type A Ag Influenza Type B Ag RSV (PCR) SARS-CoV-2 (PCR) 11/22/21 11/22/21 11/22/21 03:15 02:01 01:53 WBC RBC Hgb Hct MCV MCH MCHC RDW Plt Count MPV Gran % Eos # (Auto) Absolute Lymphs (auto) Absolute Monos (auto) Lymphocytes % Monocytes % Eosinophils % Basophils % Absolute Granulocytes Basophils # PT INR APTT Sodium Potassium Chloride Carbon Dioxide Anion Gap BUN Creatinine Estimated GFR Glucose Lactic Acid Calcium Magnesium Total Bilirubin AST ALT Alkaline Phosphatase Troponin I < 0.012 NT-Pro-B Natriuret Pep Serum Total Protein Albumin Urine Color STRAW Urine Appearance CLEAR Urine pH 8.0 Ur Specific [place] 1.004 Urine Protein NEGATIVE Urine Ketones NEGATIVE Urine Blood SMALL Urine Nitrite NEGATIVE Urine Bilirubin NEGATIVE Urine Urobilinogen NEGATIVE Ur Leukocyte Esterase NEGATIVE Urine WBC (Auto) NONE Urine RBC (Auto) NONE Urine Culture Reflexed NO Urine Glucose NEGATIVE Influenza Type A Ag NEGATIVE Influenza Type B Ag NEGATIVE RSV (PCR) NEGATIVE SARS-CoV-2 (PCR) NEGATIVE 11/22/21 11/22/21 11/22/21 00:40 00:40 00:40 WBC RBC Hgb Hct MCV MCH MCHC RDW Plt Count MPV Gran % Eos # (Auto) Absolute Lymphs (auto) Absolute Monos (auto) Lymphocytes % Monocytes % Eosinophils % Basophils % Absolute Granulocytes Basophils # PT 13.8 H INR 1.17 APTT 29.3 Sodium 139 Potassium 4.2 Chloride 107 Carbon Dioxide 24 Anion Gap 12.9 BUN 31 H Creatinine 0.74 Estimated GFR > 60.0 Glucose 129 H Lactic Acid Calcium 8.8 Magnesium 1.9 Total Bilirubin 0.60 AST 35 ALT 24 Alkaline Phosphatase 117 Troponin I < 0.012 NT-Pro-B Natriuret Pep 1150 Serum Total Protein 6.8 Albumin 4.0 Urine Color Urine Appearance Urine pH Ur Specific [place] Urine Protein Urine Ketones Urine Blood Urine Nitrite Urine Bilirubin Urine Urobilinogen Ur Leukocyte Esterase Urine WBC (Auto) Urine RBC (Auto) Urine Culture Reflexed Urine Glucose Influenza Type A Ag Influenza Type B Ag RSV (PCR) SARS-CoV-2 (PCR) 11/22/21 11/22/21 00:40 00:40 WBC 12.4 H RBC 3.34 L Hgb 11.3 L Hct 34.4 L MCV 103.0 H MCH 33.8 H MCHC 32.8 RDW 13.5 Plt Count 225 MPV 10.4 Gran % 80.6 H Eos # (Auto) 0.13 Absolute Lymphs (auto) 1.46 Absolute Monos (auto) 0.74 Lymphocytes % 11.8 L Monocytes % 6.0 Eosinophils % 1.0 Basophils % 0.6 Absolute Granulocytes 9.98 H Basophils # 0.08 PT INR APTT Sodium Potassium Chloride Carbon Dioxide Anion Gap BUN Creatinine Estimated GFR Glucose Lactic Acid 1.2 Calcium Magnesium Total Bilirubin AST ALT Alkaline Phosphatase Troponin I NT-Pro-B Natriuret Pep Serum Total Protein Albumin Urine Color Urine Appearance Urine pH Ur Specific [place] Urine Protein Urine Ketones Urine Blood Urine Nitrite Urine Bilirubin Urine Urobilinogen Ur Leukocyte Esterase Urine WBC (Auto) Urine RBC (Auto) Urine Culture Reflexed Urine Glucose Influenza Type A Ag Influenza Type B Ag RSV (PCR) SARS-CoV-2 (PCR) Orders (Last 24 hours) Category Date Time Status Up With Assistance ROUTINE Activity 11/22/21 01:29 Active Code Status Order ROUTINE Care 11/22/21 01:29 Active EKG-ER Only STAT Care 11/22/21 00:04 Completed IV Care Q6H Care 11/22/21 01:29 Active IV Insertion STAT Care 11/22/21 00:04 Completed Miscellaneous Nursing Order ROUTINE Care 11/22/21 03:35 Active Neuro Checks Q4H Care 11/22/21 01:[address] in Observation ROUTINE Care 11/22/21 01:30 Active Telemetry q6h Care 11/22/21 01:29 Active Vital Signs Q4H Care 11/22/21 01:29 Active Weight,Daily 0600 Care 11/22/21 01:29 Active House Regular Diet Diet 11/22/21 Breakfast Active CHEST 1 VIEW (PORTABLE) Stat Exams 11/22/21 00:05 Completed HEAD WITHOUT CONTRAST [CT] Stat Exams 11/22/21 00:07 Completed CBC W DIFF AM.LAB Lab 11/22/21 04:30 Completed CBC W DIFF Stat Lab 11/22/21 00:40 Completed CMP AM.LAB Lab 11/22/21 04:30 Completed CMP Stat Lab 11/22/21 00:40 Completed Lactic Acid Stat Lab 11/22/21 00:40 Completed MAGNESIUM Stat Lab 11/22/21 00:40 Completed NT PRO BNP Stat Lab 11/22/21 00:40 Completed PROTIME WITH INR AM.LAB Lab 11/22/21 04:30 Completed PROTIME WITH INR Stat Lab 11/22/21 00:40 Completed PTT Stat Lab 11/22/21 00:40 Completed TROPONIN Q3H Lab 11/22/21 00:40 Completed TROPONIN Q3H Lab 11/22/21 03:15 Completed TROPONIN Q3H Lab 11/22/21 04:30 Completed TROPONIN Q3H Lab 11/22/21 08:51 Completed TROPONIN Q3H Lab 11/22/21 12:25 Completed UA W/RFX UR CULTURE Stat Lab 11/22/21 02:01 Completed Calcium Carb/Vitamin D 500 mg* [Calcium 500MG W/Vit D Med 11/22/21 10:00 Active Tablet] 1 tab PO DAILY Cefazolin 1 gm/50 ml Premix [Kefzol 1 gm/50 ml Premix Med 11/22/21 06:00 Discontinued ] 1 gm in 50 ml IV Q8HT Diltiazem HCl 120 mg [Cardizem CD 120 MG] Med 11/22/21 22:00 Active 240 mg PO HS Docusate Sodium 100 mg [Colace 100 MG] Med 11/22/21 10:00 Active 100 mg PO DAILY Furosemide 20 mg [Lasix 20 mg] Med 11/22/21 10:00 Active 10 mg PO DAILY Hydromorphone 1 mg/1Ml Inj [Hydromorphone 1 mg/ml Med 11/22/21 01:29 Active Injection] 0.5 mg IV Q4H PRN PRN Latanoprost [Xalatan] Med 11/22/21 22:00 Active 0 ml OP HS Metoprolol Tartrate 5 mg/5 ml* [Lopressor 5 mg/5 ml Med 11/22/21 00:00 Discontinued Injection] 5 mg IV .STK-MED ONE Metoprolol Tartrate 5 mg/5 ml* [Lopressor 5 mg/5 ml Med 11/22/21 01:09 Discontinued Injection] 5 mg IV .STK-MED ONE Metoprolol Tartrate 5 mg/5 ml* [Lopressor 5 mg/5 ml Med 11/22/21 01:45 Discontinued Injection] 5 mg IV Q6H Metoprolol Tartrate 5 mg/5 ml* [Lopressor 5 mg/5 ml Med 11/22/21 08:00 Active Injection] 5 mg IV Q6HT Metoprolol Tartrate 5 mg/5 ml* [Lopressor 5 mg/5 ml Med 11/22/21 00:01 Discontinued Injection] 5 mg IV STAT ONE Metoprolol Tartrate 5 mg/5 ml* [Lopressor 5 mg/5 ml Med 11/22/21 01:07 Discontinued Injection] 5 mg IV STAT ONE Multivitamins,Therapeutic Tab* [Theragran Multivitamin* Med 11/22/21 10:00 Active ] 1 tab PO DAILY NaCl 0.9% 1000 ml [Sodium Chloride 0.9% 1000 ML] 1,000 Med 11/22/21 00:15 Discontinued ml IV 100 mls/hr NaCl 0.9% 1000 ml [Sodium Chloride 0.9% 1000 ML] 1,000 Med 11/22/21 01:30 Active ml IV 100 mls/hr Tramadol HCl 50 mg [Ultram 50 mg] Med 11/22/21 10:00 Active 50 mg PO QID Transfer Order Routine Transfer 11/22/21 Completed Code(s): R04.0 - EPISTAXIS (2) Atrial fibrillation with RVR Current Visit: Yes Status: Acute Assessment & Plan: Last Vital Signs Temp 98.4 F 11/22/21 08:00 Pulse 104 H 11/22/21 08:00 Resp 22 11/22/21 08:00 BP 129/79 11/22/21 08:00 Pulse Ox 97 11/22/21 08:00 Allergies No Known Drug Allergies Allergy (Verified 11/21/21 23:48) Active Medications Calcium Carbonate (Calcium Carbonate 500 Mg/Vitamin D 1 Tab Tablet) 1 tab PO DAILY LEILA Stop: 12/22/21 09:59 Last Admin: 11/22/21 09:39 Dose: 1 tab Diltiazem HCl (Diltiazem Hcl 120 Mg Cap.Sr.24h) 240 mg PO [facility] Stop: 12/22/21 21:59 Docusate Sodium (Docusate Sodium 100 Mg Capsule) 100 mg PO DAILY LEILA Stop: 12/22/21 09:59 Last Admin: 11/22/21 09:40 Dose: 100 mg Furosemide (Furosemide 20 Mg Tablet) 10 mg PO DAILY LEILA Stop: 12/22/21 09:59 Last Admin: 11/22/21 09:39 Dose: 10 mg Hydromorphone HCl (Hydromorphone 1 Mg/1ml Inj 1 Mg/Ml Syringe) 0.5 mg IV Q4H PRN PRN PRN Reason: PAIN Stop: 11/27/21 01:28 Sodium Chloride (Sodium Chloride 0.9% 1000 Ml) 1,000 mls @ 100 mls/hr IV .Q10H LEILA Stop: 12/22/21 01:29 Last Admin: 11/22/21 09:43 Dose: 100 mls/hr Latanoprost (Latanoprost 2.5 Ml Bottle) 0 ml OP HS LEILA Stop: 12/22/21 21:59 Metoprolol Tartrate (Metoprolol Tartrate 5 Mg/5 Ml Injection) 5 mg IV Q6HT LEILA Stop: 12/22/21 07:59 Last Admin: 11/22/21 12:46 Dose: 5 mg Multivitamins Therapeutic (Multivitamins,Therapeutic 1 Tab Tab) 1 tab PO DAILY LEILA Stop: 12/22/21 09:59 Last Admin: 11/22/21 09:39 Dose: 1 tab Tramadol HCl (Tramadol Hcl 50 Mg Tablet) 50 mg PO QID LEILA Stop: 12/22/21 09:59 Last Admin: 11/22/21 09:40 Dose: 50 mg Intake & Output 11/22/21 11/23/21 11:59 11:59 Intake Total 240 Output Total 1999 Balance -1760 Weight 51.4 kg Lab Tests 11/22/21 11/22/21 11/22/21 00:40 00:40 00:40 WBC 12.4 H RBC 3.34 L Hgb 11.3 L Hct 34.4 L MCV 103.0 H MCH 33.8 H MCHC 32.8 RDW 13.5 Plt Count 225 MPV 10.4 Gran % 80.6 H Eos # (Auto) 0.13 Absolute Lymphs (auto) 1.46 Absolute Monos (auto) 0.74 Lymphocytes % 11.8 L Monocytes % 6.0 Eosinophils % 1.0 Basophils % 0.6 Absolute Granulocytes 9.98 H Basophils # 0.08 PT INR APTT Sodium 139 Potassium 4.2 Chloride 107 Carbon Dioxide 24 Anion Gap 12.9 BUN 31 H Creatinine 0.74 Estimated GFR > 60.0 Glucose 129 H Lactic Acid 1.2 Calcium 8.8 Magnesium 1.9 Total Bilirubin 0.60 AST 35 ALT 24 Alkaline Phosphatase 117 Troponin I NT-Pro-B Natriuret Pep 1150 Serum Total Protein 6.8 Albumin 4.0 Urine Color Urine Appearance Urine pH Ur Specific [place] Urine Protein Urine Ketones Urine Blood Urine Nitrite Urine Bilirubin Urine Urobilinogen Ur Leukocyte Esterase Urine WBC (Auto) Urine RBC (Auto) Urine Culture Reflexed Urine Glucose Influenza Type A Ag Influenza Type B Ag RSV (PCR) SARS-CoV-2 (PCR) 11/22/21 11/22/21 11/22/21 00:40 00:40 01:53 WBC RBC Hgb Hct MCV MCH MCHC RDW Plt Count MPV Gran % Eos # (Auto) Absolute Lymphs (auto) Absolute Monos (auto) Lymphocytes % Monocytes % Eosinophils % Basophils % Absolute Granulocytes Basophils # PT 13.8 H INR 1.17 APTT 29.3 Sodium Potassium Chloride Carbon Dioxide Anion Gap BUN Creatinine Estimated GFR Glucose Lactic Acid Calcium Magnesium Total Bilirubin AST ALT Alkaline Phosphatase Troponin I < 0.012 NT-Pro-B Natriuret Pep Serum Total Protein Albumin Urine Color Urine Appearance Urine pH Ur Specific [place] Urine Protein Urine Ketones Urine Blood Urine Nitrite Urine Bilirubin Urine Urobilinogen Ur Leukocyte Esterase Urine WBC (Auto) Urine RBC (Auto) Urine Culture Reflexed Urine Glucose Influenza Type A Ag NEGATIVE Influenza Type B Ag NEGATIVE RSV (PCR) NEGATIVE SARS-CoV-2 (PCR) NEGATIVE 11/22/21 11/22/21 11/22/21 02:01 03:15 04:30 WBC RBC Hgb Hct MCV MCH MCHC RDW Plt Count MPV Gran % Eos # (Auto) Absolute Lymphs (auto) Absolute Monos (auto) Lymphocytes % Monocytes % Eosinophils % Basophils % Absolute Granulocytes Basophils # PT INR APTT Sodium Potassium Chloride Carbon Dioxide Anion Gap BUN Creatinine Estimated GFR Glucose Lactic Acid Calcium Magnesium Total Bilirubin AST ALT Alkaline Phosphatase Troponin I < 0.012 < 0.012 NT-Pro-B Natriuret Pep Serum Total Protein Albumin Urine Color STRAW Urine Appearance CLEAR Urine pH 8.0 Ur Specific [place] 1.004 Urine Protein NEGATIVE Urine Ketones NEGATIVE Urine Blood SMALL Urine Nitrite NEGATIVE Urine Bilirubin NEGATIVE Urine Urobilinogen NEGATIVE Ur Leukocyte Esterase NEGATIVE Urine WBC (Auto) NONE Urine RBC (Auto) NONE Urine Culture Reflexed NO Urine Glucose NEGATIVE Influenza Type A Ag Influenza Type B Ag RSV (PCR) SARS-CoV-2 (PCR) 11/22/21 11/22/21 11/22/21 04:30 04:30 04:30 WBC 10.7 H RBC 3.15 L Hgb 10.5 L Hct 32.9 L MCV 104.4 H MCH 33.3 H MCHC 31.9 L RDW 13.8 Plt Count 222 MPV 11.1 H Gran % 76.2 H Eos # (Auto) 0.05 Absolute Lymphs (auto) 1.77 Absolute Monos (auto) 0.64 Lymphocytes % 16.6 L Monocytes % 6.0 Eosinophils % 0.5 Basophils % 0.7 Absolute Granulocytes 8.12 H Basophils # 0.07 PT 14.7 H INR 1.25 APTT Sodium 140 Potassium 3.9 Chloride 107 Carbon Dioxide 25 Anion Gap 11.7 BUN 32 H Creatinine 0.72 Estimated GFR > 60.0 Glucose 131 H Lactic Acid Calcium 8.4 Magnesium Total Bilirubin 0.70 AST 36 ALT 24 Alkaline Phosphatase 97 Troponin I NT-Pro-B Natriuret Pep Serum Total Protein 6.7 Albumin 3.9 Urine Color Urine Appearance Urine pH Ur Specific [place] Urine Protein Urine Ketones Urine Blood Urine Nitrite Urine Bilirubin Urine Urobilinogen Ur Leukocyte Esterase Urine WBC (Auto) Urine RBC (Auto) Urine Culture Reflexed Urine Glucose Influenza Type A Ag Influenza Type B Ag RSV (PCR) SARS-CoV-2 (PCR) 11/22/21 11/22/21 08:51 12:25 WBC RBC Hgb Hct MCV MCH MCHC RDW Plt Count MPV Gran % Eos # (Auto) Absolute Lymphs (auto) Absolute Monos (auto) Lymphocytes % Monocytes % Eosinophils % Basophils % Absolute Granulocytes Basophils # PT INR APTT Sodium Potassium Chloride Carbon Dioxide Anion Gap BUN Creatinine Estimated GFR Glucose Lactic Acid Calcium Magnesium Total Bilirubin AST ALT Alkaline Phosphatase Troponin I < 0.012 < 0.012 NT-Pro-B Natriuret Pep Serum Total Protein Albumin Urine Color Urine Appearance Urine pH Ur Specific [place] Urine Protein Urine Ketones Urine Blood Urine Nitrite Urine Bilirubin Urine Urobilinogen Ur Leukocyte Esterase Urine WBC (Auto) Urine RBC (Auto) Urine Culture Reflexed Urine Glucose Influenza Type A Ag Influenza Type B Ag RSV (PCR) SARS-CoV-2 (PCR) Code(s): I48.91 - UNSPECIFIED ATRIAL FIBRILLATION (3) Syncope Current Visit: Yes Status: Acute Code(s): R55 - SYNCOPE AND COLLAPSE
[2021-11-22] MEDS: PATIENT OWN MEDICATION OP SCH ×4 (13:57→21:57)
[2021-11-22] MEDS ORDERED: TYLENOL 325 MG PO PRN (21:49)
[2021-11-22] MEDS ORDERED: Cardizem CD 120 MG PO SCH (22:00)
[2021-11-22] MEDS ORDERED: Xalatan OP SCH (22:00)
[2021-11-22] MEDS ORDERED: NON-FORMULARY ITEM (Diltiazem Hcl [Diltiazem 24hr Er] 240 MG Cap.Sa.24h) PO SCH (22:00)
[2021-11-22] MEDS ORDERED: PATIENT OWN MEDICATION OP SCH (22:00)
[2021-11-23] MEDS: LOPRESSOR 5 MG/5 ML INJECTION IV SCH ×2 (00:36→06:30)
[2021-11-23] MEDS: Sodium Chloride 0.9% 1000 ML 1,000 ML IV SCH (05:19)
[2021-11-23 07:09] VITALS: BP 96/61; PULSE 98; O2SAT 95
--- NOTE | 2021-11-23 08:34 | PCM.NOTE ---
Date and Time: 11/23/21831 Subjective Assessment: doing better - Review of Systems Constitutional: No Fever, No Chills Eyes: No Symptoms Ears, Nose, & Throat: No Symptoms Respiratory: No Cough, No Short Of Breath Cardiac: No Chest Pain, No Edema, No Syncope Abdominal/Gastrointestinal: No Abdominal Pain, No Nausea, No Vomiting, No Diarrhea Genitourinary Symptoms: No Dysuria Musculoskeletal: No Back Pain, No Neck Pain Skin: No Rash Neurological: No Dizziness, No Focal Weakness, No Sensory Changes Psychological: No Symptoms Endocrine: No Symptoms Hematologic/Lymphatic: No Symptoms Immunological/Allergic: No Symptoms Objective Exam General Appearance: no apparent distress, alert Neurologic Exam: alert, oriented x 3, cooperative, normal mood/affect, nml cerebellar function, sensation nml, No motor deficits Skin Exam: normal color, warm, dry Eye Exam: PERRL, EOMI, eyes nml inspection Ears, Nose, Throat Exam: normal ENT inspection, pharynx normal, moist mucous membranes Neck Exam: normal inspection, non-tender, supple, full range of motion Respiratory Exam: normal breath sounds, lungs clear, No respiratory distress Cardiovascular Exam: regular rate/rhythm, normal heart sounds Gastrointestinal/Abdomen Exam: soft, No tenderness, No mass Extremity Exam: normal inspection, normal range of motion Back Exam: normal inspection, normal range of motion, No CVA tenderness, No vertebral tenderness Pelvic Exam: deferred Rectal Exam: deferred OBJECTIVE DATA Vital Signs: Vital Signs - 24 hr Temp Pulse Resp BP Pulse Ox 11/23/21 07:07 97.1 F 98 H 16 96/61 95 11/23/21 04:00 97.7 F 87 18 139/70 97 11/23/21 00:00 98.6 F 93 H 16 86/61 94 L 11/22/21 19:47 99.0 F 70 20 126/58 93 L 11/22/21 16:00 97.5 F 99 H 18 124/79 95 11/22/21 12:00 97.7 F 114 H 18 161/98 99 Pain Assessment - Last Documented Pain Intensity 6 Pain Scale Used [facility] Intake and Output: Intake & Output 11/20/21 11/21/21 11/22/21 11/23/21 11:59 11:59 11:59 11:59 Intake Total 240 3817 Output Total 1999 500 Balance -1760 3317 Weight 51.4 kg 51.2 kg Lab Results: Lab Results-Last 24 Hours 11/22/21 11/22/21 Range/Units 08:51 12:25 Troponin I < 0.012 < 0.012 (0.000-0.034) ng/mL Radiology Exams: Radiology Procedures Category Date Time Status CHEST 1 VIEW (PORTABLE) Stat Exams 11/22/21 00:05 Completed HEAD WITHOUT CONTRAST [CT] Stat Exams 11/22/21 00:07 Completed Assessment/Plan (1) Epistaxis Current Visit: Yes Status: Resolved Code(s): R04.0 - EPISTAXIS (2) Atrial fibrillation with RVR Current Visit: Yes Status: Chronic Code(s): I48.91 - UNSPECIFIED ATRIAL FIBRILLATION (3) Syncope Current Visit: Yes Status: Resolved Qualifiers: Syncope type: unspecified Qualified Code(s): R55 - Syncope and collapse Code(s): R55 - SYNCOPE AND COLLAPSE
[2021-11-23] MEDS: Colace 100 MG PO SCH (09:02)
[2021-11-23] MEDS: THERAGRAN MULTIVITAMIN PO SCH (09:02)
[2021-11-23] MEDS: ULTRAM 50 MG PO SCH (09:02)
[2021-11-23] MEDS: PATIENT OWN MEDICATION OP SCH ×2 (09:03)
[2021-11-23] MEDS: Calcium 500MG W/Vit D Tablet PO SCH (09:03)
[2021-11-23] MEDS: LASIX 20 MG PO SCH (09:05)
--- NOTE | 2021-11-23 14:04 | PCM.DS ---
Discharge Summary Date of Admission: 11/22/21 03:26 Admitting Physician: HUI FREY Primary Care Provider: HUI FREY Allergies Allergies No Known Drug Allergies Allergy (Verified 11/21/21 23:48) Hospital Summary - Hospital Course Hospital Course: Chief Complaint Diagnosis c/o nose bleed 7-8 hours ago, syncopal episode today Allergies Allergy/AdvReac Type Severity Reaction Status Date / Time No Known Drug Allergies Allergy Verified 11/21/21 23:48 Vital Signs (Last 24 hours) Temp Pulse Resp BP Pulse Ox 11/23/21 07:07 97.1 F 98 H 16 96/61 95 11/23/21 04:00 97.7 F 87 18 139/70 97 11/23/21 00:00 98.6 F 93 H 16 86/61 94 L 11/22/21 19:47 99.0 F 70 20 126/58 93 L 11/22/21 16:00 97.5 F 99 H 18 124/79 95 Home Medications Medication Instructions Recorded Confirmed Last Taken Type Diltiazem HCl [Diltiazem 24Hr ER] 240 mg PO HS 11/22/21 11/22/21 11/22/21 History Furosemide [Lasix] 10 mg PO DAILY 11/22/21 11/22/21 11/21/21 History Current Medications Discontinued Medications Generic Name Dose Route Start Last Admin Trade Name Freq PRN Reason Stop Dose Admin Acetaminophen 650 mg 11/22/21 21:49 11/22/21 21:57 Acetaminophen 325 Mg Tablet PO 12/22/21 21:48 650 mg Q4H PRN PRN Administration PAIN AND/OR FEVER Calcium Carbonate 1 tab 11/22/21 10:00 11/23/21 09:03 Calcium Carbonate 500 Mg/Vitamin D 1 Tab Tablet PO 12/22/21 09:59 1 tab DAILY LEILA Administration Diltiazem HCl 240 mg 11/22/21 22:00 11/22/21 21:43 Diltiazem Hcl 120 Mg Cap.Sr.24h PO 12/22/21 21:59 240 mg HS LEILA Administration Docusate Sodium 100 mg 11/22/21 10:00 11/23/21 09:02 Docusate Sodium 100 Mg Capsule PO 12/22/21 09:59 Not Given DAILY LEILA Furosemide 10 mg 11/22/21 10:00 11/23/21 09:05 Furosemide 20 Mg Tablet PO 12/22/21 09:59 Not Given DAILY LEILA Hydromorphone HCl 0.5 mg 11/22/21 01:29 Hydromorphone 1 Mg/1ml Inj 1 Mg/Ml Syringe IV 11/27/21 01:28 Q4H PRN PRN PAIN Sodium Chloride 1,000 mls @ 100 mls/hr 11/22/21 00:15 11/22/21 00:27 Sodium Chloride 0.9% 1000 Ml IV 12/22/21 00:14 100 mls/hr .Q10H LEILA Administration Sodium Chloride 1,000 mls @ 100 mls/hr 11/22/21 01:30 11/23/21 05:19 Sodium Chloride 0.9% 1000 Ml IV 12/22/21 01:29 100 mls/hr .Q10H LEILA Administration Cefazolin Sodium/Dextrose 1 gm in 50 mls @ 100 mls/hr 11/22/21 06:00 Kefzol 1 Gm/50 Ml Premix IV 11/25/21 05:59 Q8HT LEILA Metoprolol Tartrate Confirm 11/22/21 00:00 Metoprolol Tartrate 5 Mg/5 Ml Injection Administered 11/22/21 00:01 Dose 5 mg IV .STK-MED ONE Metoprolol Tartrate 5 mg 11/22/21 00:01 11/22/21 00:04 Metoprolol Tartrate 5 Mg/5 Ml Injection IV 11/22/21 00:02 5 mg STAT ONE Administration Metoprolol Tartrate 5 mg 11/22/21 01:07 11/22/21 01:11 Metoprolol Tartrate 5 Mg/5 Ml Injection IV 11/22/21 01:08 5 mg STAT ONE Administration Metoprolol Tartrate Confirm 11/22/21 01:09 Metoprolol Tartrate 5 Mg/5 Ml Injection Administered 11/22/21 01:10 Dose 5 mg IV .STK-MED ONE Metoprolol Tartrate 5 mg 11/22/21 01:45 11/22/21 07:56 Metoprolol Tartrate 5 Mg/5 Ml Injection IV 12/22/21 01:44 Not Given Q6H LEILA Metoprolol Tartrate 5 mg 11/22/21 08:00 11/23/21 06:30 Metoprolol Tartrate 5 Mg/5 Ml Injection IV 12/22/21 07:59 Not Given Q6HT LEILA Multivitamins Therapeutic 1 tab 11/22/21 10:00 11/23/21 09:02 Multivitamins,Therapeutic 1 Tab Tab PO 12/22/21 09:59 1 tab DAILY LEILA Administration Brimonidine Eye 0 each 11/22/21 14:00 11/23/21 09:03 Drops OP 12/22/21 13:59 1 each BID LEILA Administration Dorzolamide Eye 0 each 11/22/21 14:00 11/23/21 09:03 Drops OP 12/22/21 13:59 1 each BID LEILA Administration Latanoprost Eye 0 each 11/22/21 22:00 11/22/21 22:15 Drops OP 12/22/21 21:59 1 each HS LEILA Administration Tramadol HCl 50 mg 11/22/21 10:00 11/23/21 09:02 Tramadol Hcl 50 Mg Tablet PO 12/22/21 09:59 50 mg QID LEILA Administration Intake & Output (Last 24 hours) 11/21/21 11/22/21 11/23/21 11/24/21 11:59 11:59 11:59 11:59 Intake Total 240 4297 Output Total 2000 500 Balance -1760 3797 Weight 51.4 kg 51.2 kg Orders (Last 24 hours) Category Date Time Status Discharge Routine Discharge 11/23/21 Ordered Discharge/Telephone Order Routine Discharge 11/23/21 Active Acetaminophen 325 mg [Tylenol 325 mg] Med 11/22/21 21:49 Discontinued 650 mg PO Q4H PRN PRN Diltiazem HCl 120 mg [Cardizem CD 120 MG] Med 11/22/21 22:00 Discontinued 240 mg PO HS Patient Own Med [Patient Own Medication] Med 11/22/21 14:00 Discontinued See Dose Instructions OP BID Patient Own Med [Patient Own Medication] Med 11/22/21 14:00 Discontinued See Dose Instructions OP BID Patient Own Med [Patient Own Medication] Med 11/22/21 22:00 Discontinued See Dose Instructions OP HS Patient Care Notes (Last 24 hours) 11/23/21 11:38 Nursing Note by Katlyn Lanier All discharge information provided to patient in detail. Education provided to patient on monitoring BP, recording, and notifying physician if having issues. Patient and [id number] verbalized understanding. Patient taken by wheelchair to [id number] personal vehicle to be transported to her home. Initialized on 11/23/21 11:38 - END OF NOTE 11/23/21 10:36 Case Management Note by Vicki Rene S/W PATIENT- SHE CONTINUES TO DENY ANY NEW NEEDS AT DC. SHE PLANS TO DC HOME TO HER PRIOR LEVEL OF FUNCTIONING AT TIME OF DC Initialized on 11/23/21 10:36 - END OF NOTE 11/23/21 09:27 Nursing Note by Matilde Renae DR CALLED, DISCHARGE PATIENT TODAY. RESUME ALL HOME MEDICATIONS. PATIENT NEEDS A FOLLOW UP ON SUNDAY Initialized on 11/23/21 09:27 - END OF NOTE - Vitals & Intake/Output Vital Signs: Vital Signs Temperature 97.1 F 11/23/21 07:07 Pulse Rate 98 H 11/23/21 07:07 Respiratory Rate 16 11/23/21 07:07 Blood Pressure 96/61 11/23/21 07:07 O2 Sat by Pulse Oximetry 95 11/23/21 07:07 Intake & Output: Intake & Output 11/21/21 11/22/21 11/23/21 11/24/21 11:59 11:59 11:59 11:59 Intake Total 240 4297 Output Total 2000 500 Balance -1760 3797 Weight 51.4 kg 51.2 kg - Lab Result Diagrams: 11/22/21 04:30 11/22/21 04:30 - Radiology Exams Ordered Rad Exams-Entire Visit: Radiology Procedures Category Date Time Status CHEST 1 VIEW (PORTABLE) Stat Exams 11/22/21 00:05 Completed HEAD WITHOUT CONTRAST [CT] Stat Exams 11/22/21 00:07 Completed Discharge Exam General Appearance: no apparent distress, alert Neurologic Exam: alert, oriented x 3, cooperative, normal mood/affect, nml cerebellar function, sensation nml, No motor deficits Eye Exam: PERRL, EOMI, eyes nml inspection Ears, Nose, Throat Exam: normal ENT inspection, pharynx normal, moist mucous membranes Neck Exam: normal inspection, non-tender, supple, full range of motion Respiratory Exam: normal breath sounds, lungs clear, No respiratory distress Cardiovascular Exam: regular rate/rhythm, normal heart sounds Gastrointestinal/Abdomen Exam: soft, No tenderness, No mass Pelvic Exam: deferred Rectal Exam: deferred Back Exam: normal inspection, normal range of motion, No CVA tenderness, No vertebral tenderness Extremity Exam: normal inspection, normal range of motion Skin Exam: normal color, warm, dry Final Diagnosis/Problem List - Final Discharge Diagnosis/Problem (1) Epistaxis Status: Resolved Code(s): R04.0 - EPISTAXIS (2) Atrial fibrillation with RVR Status: Chronic Code(s): I48.91 - UNSPECIFIED ATRIAL FIBRILLATION (3) Syncope Status: Resolved Code(s): R55 - SYNCOPE AND COLLAPSE - Discharge Discharge Date: 11/23/21 Disposition: Home, Self-Care Condition: Stable Prescriptions: Continue Tramadol HCl 50 mg [Ultram 50 mg] 50 mg PO QID Latanoprost 1 drops OP HS Dorzolamide HCl/Pf [Dorzolamide 2% Eye Drop] 1 drop OP BID Brimonidine/Dorzolamide/Pf [Brimonidine 0.15%-Dorzolam 2%] 1 drops OP BID Calcium Carbonate [Calcium] 500 mg PO DAILY Multivitamin [Multiple Vitamins] 1 each PO DAILY Apixaban [Eliquis] 5 mg PO DAILY Docusate Sodium [Colace] 100 mg PO DAILY Diltiazem HCl [Diltiazem 24Hr ER] 240 mg PO HS Furosemide [Lasix] 10 mg PO DAILY Instructions: Nosebleeds, Atrial Fibrillation (DC) Additional Instructions: Monitor blood pressure 2 times a day and before taking any cardiac medications Follow up with: LEEANNE CREWS MD [NON-STAFF PHY W/O PRIVILEGES] - 01/09/22 9:15 am (Dr. Crews's office will call patient if sooner appointment becomes available.) HUI FREY MD [Primary Care Provider] - 11/30/21 9:15 am ([facility]) Forms: Discharge Instructions
== END 2021-11-23 11:32 | disposition home or self-care (01) ==
LOC: ED 23:25 → MED SURG 11-22 03:26
PROVIDERS: ADMIT General Practice; ATTEND General Practice
DX: R04.0 Epistaxis (principal); I48.91 Unspecified atrial fibrillation; R55 Syncope and collapse; I10 Essential (primary) hypertension; Z79.01 Long term (current) use of anticoagulants; Z79.899 Other long term (current) drug therapy; W18.30XA Fall on same level, unspecified, initial encounter; Z20.828 Contact with and (suspected) exposure to other viral communicable diseases
CPT/HCPCS: 0241U; 36000; 36415; 70450; 71045; 80053; 81001; 83605; 83735; 83880; 84484; 85025; 85610; 85730; 93005; 93268; 96374; 99285; A9270-GY; G0378

== ENCOUNTER 2023-04-17 11:19 | Emergency (ER) | payer MEDICARE, OTHER ==
[2023-04-17 11:34] VITALS: TEMP 97.8; O2SAT 98
--- NOTE | 2023-04-17 11:55 | ERPHSYRPT ---
- History of Present Illness Time Seen by Provider: 04/17/23 11:51 Source: patient Exam Limitations: no limitations Patient Subjective Stated Complaint: Pt's cat jumped off of the top of her vehicle yesterday and landed on the pt's right ear causing a laceration to the upper part and back of the ear Triage Nursing Assessment: Pt brought to the ER by her daughter in law, hypertensive, denies pain, 1.5cm laceration to the upper right ear that extends to the back of the ear, laceration happened yesterday but it continues to bleed, pt is on blood thinners, pulses normal, skin n/w/d, doesn't appear to be in any distress Physician History: Patient is a 78-year-old female presents to our ED for evaluation of a laceration to her right ear. Patient was entering her vehicle when her cat jumped off of the roof of her car and lacerated her right ear. Injury occurred yesterday. The wound is just short of 24 hours old. Patient cleaned the wound and dressed it at home. But observed it was still "leaking" today. Patient is on Eliquis. Patient's had to come to our ED for evaluation. No other injuries reported. Patient denies pain. Patient declined pain medication. Symptoms are mild to moderate in intensity. No specific worsening or improving factors. Patient voices no other complaints or concerns at this time. Tetanus is not up-to-date. Timing/Duration: yesterday Severity: moderate Modifying Factors: Improves With: nothing Associated Symptoms: denies symptoms Allergies/Adverse Reactions: No Known Drug Allergies Allergy (Verified 04/17/23 11:33) Home Medications: Apixaban [Eliquis] 5 mg PO DAILY 07/01/20 [History] Brimonidine/Dorzolamide/Pf [Brimonidine 0.15%-Dorzolam 2%] 1 drops OP BID 07/01/20 [History] Calcium Carbonate [Calcium] 500 mg PO DAILY 07/01/20 [History] Docusate Sodium [Colace] 100 mg PO DAILY 07/01/20 [History] Multivitamin [Multiple Vitamins] 1 each PO DAILY 07/01/20 [History] Tramadol HCl 50 mg [Ultram 50 mg] 50 mg PO QID 07/01/20 [History] Furosemide [Lasix] 20 mg PO DAILY 03/15/22 [History] dilTIAZem HCL [Diltiazem 24Hr ER] 240 mg PO HS 11/22/21 [History] Hx Tetanus, Diphtheria Vaccination/Date Given: No Hx Influenza Vaccination/Date Given: No Hx Pneumococcal Vaccination/Date Given: No Travel Risk - International Travel Have you traveled outside of the country in past 3 weeks: No - Coronavirus Screening Are you exhibiting any of the following symptoms?: No Close contact with a COVID-19 positive Pt in past 14-21 Days: No - Vaccine Status Have you recieved a Covid-19 vaccination: No - Review of Systems Constitutional: No Symptoms, No Fever, No Chills Eyes: No Symptoms Ears, Nose, & Throat: No Symptoms Respiratory: No Symptoms, No Cough, No Dyspnea Cardiac: No Symptoms, No Chest Pain, No Edema, No Syncope Abdominal/Gastrointestinal: No Symptoms, No Abdominal Pain, No Nausea, No Vomit ing, No Diarrhea Genitourinary Symptoms: No Symptoms, No Dysuria Musculoskeletal: No Symptoms, No Back Pain, No Neck Pain Skin: No Symptoms, No Rash Neurological: No Symptoms, No Dizziness, No Focal Weakness, No Sensory Changes Psychological: No Symptoms Endocrine: No Symptoms Hematologic/Lymphatic: No Symptoms Immunological/Allergic: No Symptoms All Other Systems: Reviewed and Negative - Past Medical History Pertinent Past Medical History: Yes Neurological History: No Pertinent History ENT History: Glaucoma Cardiac History: Arrhythmia, Hypertension Respiratory History: Emphysema Endocrine Medical History: No Pertinent History Musculoskeletal History: Arthritis GI Medical History: No Pertinent History History: No Pertinent History Psycho-Social History: No Pertinent History Female Reproductive Disorders: No Pertinent History Other Medical History: A FIB, chronic back pain - Past Surgical History Past Surgical History: Yes Neuro Surgical History: No Pertinent History Cardiac: No Pertinent History Respiratory: No Pertinent History Gastrointestinal: No Pertinent History Genitourinary: No Pertinent History Musculoskeletal: No Pertinent History Female Surgical History: Tubal Ligation - Social History Smoking Status: Former smoker Exposure to second hand smoke: No Drug Use: none Patient Lives Alone: No Significant Family History: no pertinent family hx - Nursing Vital Signs Nursing Vital Signs: Initial Vital Signs Temperature 97.8 F 04/17/23 11:23 Pulse Rate 94 H 04/17/23 11:23 Blood Pressure 159/104 04/17/23 11:23 O2 Sat by Pulse Oximetry 98 04/17/23 11:23 Pain Scale Pain Intensity 0 - Physical Exam General Appearance: no apparent distress, alert Eye Exam: PERRL/EOMI, eyes nml inspection Ears, Nose, Throat Exam: normal ENT inspection, TMs normal, pharynx normal, moist mucous membranes Neck Exam: normal inspection, non-tender, supple, full range of motion Respiratory Exam: normal breath sounds, lungs clear, airway intact, No respiratory distress Cardiovascular Exam: regular rate/rhythm, normal heart sounds, normal peripheral pulses Gastrointestinal/Abdomen Exam: soft, normal bowel sounds, No tenderness, No mass Back Exam: normal inspection, normal range of motion, No CVA tenderness, No vertebral tenderness Extremity Exam: normal inspection, normal range of motion, pelvis stable Neurologic Exam: alert, oriented x 3, cooperative, normal mood/affect, sensation nml, No motor deficits Skin Exam: normal color, warm, dry, No rash Lymphatic Exam: No adenopathy SpO2 Interpretation: normal SpO2: 98 O2 Delivery: Room Air - Course Nursing assessment & vital signs reviewed: Yes - Progress Progress: improved Progress Note: Patient is a 78-year-old female presents to our ED for evaluation and treatment of a right ear laceration. Laceration occurred just short of 24 hours ago. Patient's cat lacerated her ear at the helix with her claw. Physical exam reveals a 1.5 cm laceration to the helix of the right ear. No active bleeding. Soft tissue is otherwise intact. The laceration was irrigated. Steri-Strips applied. Compressive dressing gently applied. Tetanus updated. Antibiotic/Keflex prescription was forwarded to patient's pharmacy. Patient declined pain medication. Patient voices no other complaints or concerns at this time. Portions of this note were created with voice recognition technology. There may be grammatical, spelling, punctuation or sound alike errors Complexity of problems addressed is low acute uncomplicated Complex of data reviewed and analyzed is none. No specialized testing ordered. Diagnosis made based on history and physical exam. Risk of complication and or risk of morbidity/mortality of patient management is moderate. Antibiotic prescription forwarded to patient's pharmacy. Tetanus updated. Dressing applied to involved ear We will discharge home. Vital stable. Time to discharge patient is approximately 10 to 15 minutes. Plan of care established for shared decision making. No social determinants of health present to impede follow-up. [id number] at bedside. They voiced no other complaints or concerns at this time. Portions of this note were created with voice recognition technology. There may be grammatical, spelling, punctuation or sound alike errors 04/17/23 11:58 See RN note for details regarding irrigation and dressing application. 04/17/23 12:05 Counseled pt/family regarding: diagnosis, need for follow-up - Departure Departure Disposition: Home Clinical Impression: Laceration of ear Condition: Stable Critical Care Time: No Referrals: HUI FREY MD [Primary Care Provider] - Follow up/PCP as directed Additional Instructions: Discharge/Care Plan CARMENZA BOWERS was seen on 04/17/23 in the Emergency Room. The patient was counseled regarding Diagnosis,Lab results, Imaging studies, need for follow up and when to return to the Emergency Room. Prescriptions given: Discharge Note I have spoken with the patient and/or caregivers. I have explained the patient's condition, diagnosis and treatment plan based on the information available to me at this time. I have answered the patient's and/or caregiver's questions and addressed any concerns. The patient and/or caregivers have as good understanding of the patient's diagnosis, condition and treatment plan as can be expected at this point. The vital signs have been stable. The patient's condition is stable and appropriate for discharge from the emergency department. The patient will pursue further outpatient evaluation with the primary care physician or other designated or consulting physician as outlined in the discharge instructions. The patient and/or caregivers are agreeable to this plan of care and follow-up instructions have been explained in detail. The patient and/or caregivers have received these instruction. The patient/and or caregivers are aware that any significant change in condition or worsening of symptoms should prompt an immediate return to this or the closest emergency department or call 911. Prescriptions: Cephalexin Mh 500 mg [Keflex 500 mg] 500 mg PO TID #21 cap
[2023-04-17] MEDS ORDERED: Adacel Vial IM ONE (12:03)
[2023-04-17] MEDS: Adacel Vial IM ONE (12:03)
[2023-04-17 12:15] VITALS: BP 138/97; PULSE 87
== END 2023-04-17 12:22 | disposition home or self-care (01) ==
LOC: ED 11:19
DX: S01.311A Laceration without foreign body of right ear, initial encounter (principal); W55.03XA Scratched by cat, initial encounter; I10 Essential (primary) hypertension; Z79.01 Long term (current) use of anticoagulants; Z79.891 Long term (current) use of opiate analgesic; Z79.899 Other long term (current) drug therapy; Z28.310 Unvaccinated for COVID-19; Z23 Encounter for immunization
CPT/HCPCS: 90471; 90715; 99282